=== PATIENT | female | born 1945 | race American Indian/Alaskan Native ===

== ENCOUNTER 2020-02-11 17:48 | Emergency (ER) | payer OTHER, MEDICARE ==
[~2020-02-11] VITALS: Ht 157.5 cm; Wt 75.7 kg
[~2020-02-11 17:48] MED LIST: CALCIUM600 MG PO; LISINOPRIL20 MG PO; MULTIVITAMINS1 EAC7 PO; PROBIOTIC1 EAC1 PO; VITAMIN D5000 UNIT PO
[2020-02-11] MEDS ORDERED: DILAUDID2 MG PO (20:56)
== END 2020-02-11 21:37 | disposition home or self-care (01) ==
LOC: ED 17:48
DX: S52.612A Displaced fracture of left ulna styloid process, initial encounter for closed fracture (principal); S52.502A Unspecified fracture of the lower end of left radius, initial encounter for closed fracture; I10 Essential (primary) hypertension; Z88.8 Allergy status to other drugs, medicaments and biological substances; Z91.010 Allergy to peanuts; Z88.5 Allergy status to narcotic agent; Z91.018 Allergy to other foods; Z79.899 Other long term (current) drug therapy; W01.198A Fall on same level from slipping, tripping and stumbling with subsequent striking against other object, initial encounter
CPT/HCPCS: 29125; 73080; 73110; 99283-25

== ENCOUNTER 2020-02-24 09:56 | Day surgery (SDC) | payer OTHER, MEDICARE ==
[~2020-02-24] VITALS: Ht 157.5 cm; Wt 79.3 kg
[~2020-02-24 09:56] MED LIST changes: +DILAUDID2 MG PO
--- NOTE | 2020-02-24 10:15 | NUR ---
both nares swabbed for covid-19 rapid testing without complication sample taken to [facility]
[2020-02-24] MEDS ORDERED: TYLENOL325 MG PO (10:45)
--- NOTE | 2020-02-24 11:41 | NUR ---
PT USES CALL LIGHT TO NOTIFY DS STAFF OF URGE TO VOID. PT UP TO BATHROOM WITH RN ASSIST, STEADY GAIT. PT ABLE TO VOID QS WITH NO PROBLEMS. RN ASSIST BACK TO DS RM 1, WARM BLANKETS PROVIDED. CALL LIGHT WITHIN REACH, FAMILY AT BEDSIDE.
[2020-02-24] MEDS ORDERED: CELECOXIB200 MG PO (16:46)
[2020-02-24] MEDS ORDERED: TRAMADOL HCL50 MG PO (16:48)
--- NOTE | 2020-02-24 17:30 | NUR ---
02/24/20 1730 Stephanie Patino 1622 PT ARRIVED IN PACU SLEEPY WITH NO C/O'S. L ARM ELEVATED ON PILLOWS WITH ICE PRESENT. 164 C/O HEADACHE. SIPPING ON COFFEE. 1700 GETTING DRESSED WITH ASSISTANCE. DC INSTRUCTIONS GIVEN. ALL QUESTIONS ANSWERED. PT PLACED IN SLING UNTIL BLOCK HAS WORN OFF. 172 LEFT VIA W/C. INSTRUCTIONS GIVEN TO SON. PT'S OWN BLACK BRACE GIVEN TO SON AT CAR.
--- NOTE | 2020-02-25 16:27 | EKG ---
[facility] [address] [facility] [place], [place] [address] Signed Normal sinus rhythm Normal ECG No previous ECGs available Confirmed by SAMANTHA RAND DO ([id number]) on 02/25/2020 4:27:41 PM Electronically Signed By: SAMANTHA RAND DO 02/25/20 1627 PATIENT NAME: LORI PEÑALOZA Electrocardiogram DATE OF : 47 PHYSICIAN: SAMANTHA RAND DO REPORT #: [id number] REPORT IS CONFIDENTIAL AND NOT TO BE RELEASED WITHOUT AUTHORIZATION
--- NOTE | 2020-02-26 08:22 | OR ---
[facility] [address] [place], [place] [address] Signed DATE OF OPERATION: 02/24/2020 SURGEON: Nancy Hebert MD PREOPERATIVE DIAGNOSIS: Left distal radius and ulnar fracture. POSTOPERATIVE DIAGNOSIS: Left distal radius and ulnar fracture. PROCEDURE PERFORMED: Open reduction and internal fixation of left distal ulna. SPORTS PSYCHOLOGIST: None. ANESTHESIA: General. TOURNIQUET TIME: 20 minutes. IMPLANTS: 2.5 x 20 mm headless screw. BRIEF HISTORY: Lori is a 74-year-old female with pain and swelling in her wrist after a fall. She had a stable slightly angulated distal radius fracture with a markedly displaced distal ulnar styloid fracture. This was a full base fracture and was displaced about 4 mm. The risks and benefits of operative treatment were discussed with her and the patient elected to proceed. DESCRIPTION OF PROCEDURE: Once consent was obtained, she was taken to the operating room. After adequate anesthesia, she was placed on the operating room table with a radiolucent hand table. The arm was placed in well-padded proximal arm tourniquet, prepped and draped in a standard sterile fashion. The arm was exsanguinated using Esmarch bandage. Tourniquet inflated to 200 mmHg. Standard dorsal lateral approach was made to the distal ulna, carried through the skin and subcutaneous tissue. Care was taken to protect and sneak underneath it. The styloid was visibly displaced and was distracted and the Electronically Signed By: NANCY HEBERT MD 02/26/20 0822 PATIENT NAME: LORI PEÑALOZA OPERATIVE REPORT DATE OF : 47 REPORT #: [id number] PHYSICIAN: NANCY HEBERT MD PCP: RONEN COLLINS MD REPORT IS CONFIDENTIAL AND NOT TO BE RELEASED WITHOUT AUTHORIZATION [facility] [address] [place] [id number] Signed fracture bed was cleared of soft tissue. We were then able to manipulate it by some rotation and clamping it distal to the shaft. Under image intensifier guidance, it looked good. We then placed the guidewire for the 2.5 headless screw and overdrilled it. This was measured to a 20. The 20 was then placed over the guide pin and advanced until it was well-seated with excellent compression of the fracture. The guide pin was then removed. Final radiographs showed good reduction and good placement of the screw. The wound was copiously irrigated with antibiotic solution, closed with 3-0 Monocryl for the deep layer and 3-0 Monocryl for the skin. Steri-Strips were applied. The wound was dressed with sterile gauze, sterile cast padding and radial gutter splint. She tolerated the procedure well. All sponge, needle, and instrument counts were correct. Nancy Hebert MD BA/EDISONL /[id number] Copies: ~ Electronically Signed By: NANCY HEBERT MD 02/26/20 0822 PATIENT NAME: LORI PEÑALOZA OPERATIVE REPORT DATE OF : 47 REPORT #: [id number] PHYSICIAN: NANCY HEBERT MD PCP: RONEN COLLINS MD REPORT IS CONFIDENTIAL AND NOT TO BE RELEASED WITHOUT AUTHORIZATION
== END 2020-02-24 17:22 | disposition home or self-care (01) ==
LOC: DS 09:56
PROVIDERS: ATTEND Specialist
DX: S52.612A Displaced fracture of left ulna styloid process, initial encounter for closed fracture (principal); S52.502A Unspecified fracture of the lower end of left radius, initial encounter for closed fracture; G89.18 Other acute postprocedural pain; W01.0XXA Fall on same level from slipping, tripping and stumbling without subsequent striking against object, initial encounter
CPT/HCPCS: 01830; 64417; 73100; 76942; 80053; 85025; C9803; J0690; J1100; J1885; J2250; J2405; J2704; J2795; J7121; U0003

== ENCOUNTER 2020-10-24 14:12 | Emergency (ER) | payer MEDICARE, OTHER ==
[~2020-10-24] VITALS: Ht 157.5 cm; Wt 78.9 kg
[~2020-10-24 14:12] MED LIST changes: +CALCIUM 600 +1 EAC8 PO; -CALCIUM600 MG PO; +CELECOXIB200 MG PO; -LISINOPRIL20 MG PO; +TRAMADOL HCL50 MG PO; +TYLENOL325 MG PO; +VITAMIN D21250 MCG PO; -VITAMIN D5000 UNIT PO; +ZESTRIL5 MG PO
--- OUTSIDE RECORDS SUMMARY | 2020-10-24 14:50 | XMS ---
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 Richard has no Care Guidelines for this patient. Roseann VISIT COUNT (12 MO.) 2 [facility] TOTAL 2 NOTE: Visits indicate total known visits. 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
== END 2020-10-24 17:04 | disposition home or self-care (01) ==
LOC: ED 14:12
DX: U07.1 COVID-19 (principal); J12.82 Pneumonia due to coronavirus disease 2019; I10 Essential (primary) hypertension; Z88.5 Allergy status to narcotic agent; Z91.041 Radiographic dye allergy status; Z91.018 Allergy to other foods; Z91.010 Allergy to peanuts; Z79.899 Other long term (current) drug therapy
CPT/HCPCS: 71045; 80053; 85025; 96374; 99284-25; J1885; J7040

== ENCOUNTER 2020-10-26 14:15 | Inpatient (IN) | payer MEDICARE, OTHER ==
[~2020-10-26] VITALS: Ht 157.5 cm; Wt 73.2 kg
--- OUTSIDE RECORDS SUMMARY | 2020-10-26 14:22 | XMS ---
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 10/26/2020-[facility] PHONE: [phone] Richard has no Care Guidelines for this patient. Care History Medical/Surgical 10/26/2020 [facility] - PATIENT IS [facility] ELIGIBLE, \T\middot;\T\nbsp; PLEASE REFER PATIENT TO [facility] FOR NON EMERGENT MEDICAL NEEDS. \T\middot;\T\nbsp; [facility] CAN SEE PATIENTS SAME DAY FOR APTS IF PATIENT CALLS FIRST THING IN THE MORNING. E.D. VISIT COUNT (12 MO.) 3 [facility] TOTAL 3 NOTE: Visits indicate total known visits. 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
--- NOTE | 2020-10-26 21:32 | NUR ---
PATIENT ARRIVED TO THE FLOOR VIA STRETCHER. PATIENT ABLE TO AMBULATE TO THE RESTRROM A 1PA. PATIENT WAS ABLE TO VOID. PATIENT IS NOW IN BED RESTING. PATIENT IS ON 2L VIA NC AND IT IS NOT CHRONIC. PATIENT ON TELE #10, SR NOTED. PATIENT DENIES ANY SOB. PATIENT HAS DRY COUGH. PATIENT DENIES ANY SPUTUM. PATIENTS ADMISSION COMPLETED. PATIENTS MEDICATIONS GIVEN PER ORDER. ALL QUESTIONS ANSWERED. PATIENT PROVIDED IWTH ICE WATER, SANDWICH BOX AND DIANA FERNANDEZ. PATIENT DENIES ANY FURTHER NEEDS. CALL LIGHT IN REACH.
--- NOTE | 2020-10-26 22:30 | NUR ---
PATIENT REQUESTED SNACK, A LUNCH BOX WAS PROVIDED. PATIENT ROOM TIDIED, IS AND OS DOCUMENTED. CALL LIGHT LEFT WITHIN REACH, NO OTHER IMMEDIATE NEEDS AT THIS TIME.
--- NOTE | 2020-10-26 23:03 | NUR ---
PATIENT IS RESTING IN BED WITH EYES CLOSED, RR 16. PATIENT ON TELE #10 HR 70 AND OXYGEN SATURATION 96%. CALL LIGHT IN REACH.
--- NOTE | 2020-10-27 03:03 | NUR ---
PATIENT ASSISTED TO THE RESTROOM A 1PA. PATIENT WAS ABLE TO VOID. PATIENT IS RESTING IN RECLINER. PATIENT REPORTS 5/10 PAIN IN HER BACK. PATIENT STATED "THE BED HURTS MY BACK". PATIENT GIVEN PRN TYLENOL PER ORDER. PATIENTS VITALS TAKEN AND RECORDED. INTAKE AND OUTPUT RECORDED. NO FURTHER NEEDS NOTED. PATIENT REMAINS ON 2L VIA NC. NO FURTHER NEEDS NOTED. CALL LIGHT IN REACH.
--- NOTE | 2020-10-27 03:38 | NUR ---
PATIENT ASSISTED FROM THE RECLINER TO BED. PATIENT REMAINS ON 2L VIA NC. PATIENT DENIES ANY SOB. PATIENT DENIES ANY NEEDS. CALL LIGHT IN REACH.
--- NOTE | 2020-10-27 05:35 | NUR ---
VITALS TAKEN AND RECORDED. INTAKE AND OUPUT RECORDED. PATIENT TITRATED TO 1L VIA NC. PATIENT DENIES ANY SOB. PATIENTS BLOOD DRAWN AND SENT TO THE LAB. PATIENT IS RESTING IN BED. PATIENT DENIES ANY NEEDS. CALL LIGHT IN REACH.
--- NOTE | 2020-10-27 07:30 | NUR ---
Report received from Ryan ENCARNACION. Pt resting in bed, has no needs at this time, will continue plan of care.
--- NOTE | 2020-10-27 07:58 | NUR ---
H&P, ER note faxed to Milo Lindsey, [facility] , per request to update clinic files.
--- NOTE | 2020-10-27 09:15 | NUR ---
Scheduled medications administered, assessment complete. Pt up to chair and eating breakfast, states having slight amount pain "in between shoulder blades", lung assessment WNL, pt states no SOB, on 1L NC with SPO2 94%. VSS, A+O, I/O's charted. No further needs at this time, call light in reach.
--- NOTE | 2020-10-27 13:00 | NUR ---
Tylenol 650mg po admin for reports of 6/10 head pain. Vital signs are stable at this time. Patient assisted to restroom then back to chair. Lunch set up for patient. Fresh water provided. Patient denies further needs. Personal supplies and call light within reach.
[2020-10-27] MEDS ORDERED: MAGOX 400400 MG PO (14:01)
--- NOTE | 2020-10-27 14:02 | NUR ---
MED REC COMPLETE
--- NOTE | 2020-10-27 16:37 | NUR ---
Rounded on patient who is resting in bed, respirations even and unlabored, reporting no needs at this time. Given medication list from pharmacy to look over, pt verbalizes understanding and has no pain, no SOB. Call light in reach.
--- NOTE | 2020-10-27 17:15 | NUR ---
Dinner taken to patient, vital signs complete. Pt states does not need to void at this time, discussed pt condition and plan of care. She states feeling "much better" and reports feeling mostly "fatigued". This RN asks about pt's living situation and if she has support at home, she states she cares for her nephew, and her daughter is coming to "disinfect her house" on monday but otherwise she does not have assistance. This RN reassures patient that she will not be discharged before medically cleared. Pt states has no questions or needs at this time. Call light in reach.
--- NOTE | 2020-10-27 19:59 | NUR ---
RECEIVED REPORT FROM DAY SHIFT RN. PATIENT IS UP TO RECELINER. PATIENT DENIES ANY NEEDS. CALL LIGHT IN REACH.
--- NOTE | 2020-10-27 21:20 | NUR ---
ASSESMENT COMPLETED. VITALS TAKEN AND RECORDED. PATIENTS MEDICATIONS GIVEN PER ORDER. PATIENT GIVEN PRN PAIN MEDICATION PER ORDER. PATIENT GIVEN PRN MELATONIN PER REQUEST. PATIENT EDUCATED ON POSITION CHANGES AND PAPER EDUCATION PROVIDED. PATIENT ASSISTED TO THE PRONE POSITION. PATIENT DENIES ANY NEEDS. CALL LIGHT IN REACH.
--- NOTE | 2020-10-27 21:40 | NUR ---
PATIENT ABLE TO PRONE FOR 20 MON. PATIENT IS NOW RESTING IN BED ON RIGHT SIDE. PATIENT DENIES ANY SOB. PATIENT DENIES ANY FURTHER NEEDS. CALL LIGHT IN REACH.
--- NOTE | 2020-10-27 22:13 | EKG ---
[facility] [address] [facility] [place], [place] [address] Signed Normal sinus rhythm Normal ECG When compared with ECG of 24-FEB-2020 11:29, No significant change was found Confirmed by AVELINO RICO MD ([id number]) on 10/27/2020 10:08:21 PM Electronically Signed By: AVELINO RICO MD 10/27/202212 PATIENT NAME: LORI PEÑALOZA Electrocardiogram DATE OF : 47 PHYSICIAN: AVELINO RICO MD REPORT #: [id number] REPORT IS CONFIDENTIAL AND NOT TO BE RELEASED WITHOUT AUTHORIZATION
--- NOTE | 2020-10-27 23:45 | NUR ---
PATIENT CALLED AND REQUESTED MORE TISSUES. PATIENT PROVIDED WITH MORE TISSUES. PATIENT IS SITTING UP ON EDGE OF THE BED. PATIENT DENIES ANY SOB. PATIENT REMAINS ON 1L VIA NC. NO FURTHER NEEDS NOTED. CALL LIGHT IN REACH.
--- NOTE | 2020-10-28 00:35 | NUR ---
PATIENT UP TO THE RESTROOM. PATIENT ABLE TO VOID. PATIENT IS BACK IN BED RESTING. PATIENT DENIES ANY NEEDS. CALL LIGHT IN REACH.
--- NOTE | 2020-10-28 02:25 | NUR ---
PATIENT IS RESTING IN BED WITH EYES CLOSED, RR 14. PATIENT IS RESTING ON HER LEFT SIDE. PATIENT IS ON TELE #10, SR, HR 63, AND 94% ON 1L. CALL LIGHT IN REACH.
--- NOTE | 2020-10-28 05:35 | NUR ---
ASSESMENT COMPLETED. PATIENT IS SITTING UP HIGH IN BED. PATIENT REPORTS GENERALIZED ACHES. PRN TYLENOL GIVEN PER ORDER. PATIENT HAS INCREASED SPUTUM OUPUT AND INCREASED COUGHING. PATIENT TITRATED UP TO 2L VIA NC. PATIENTS INTAKE AND OUPUT RECORDED. VITALS TAKEN AND RECORDED. PATIENTS BLOOD DRAWN AND SENT TO LAB. PATIENT REMAINS ON TELE #10. PATIENT REPORTS SOB ONLY WHEN COUGHING. PATIENT PROVIDED WITH HOT TEA AND FRESH ICE WATER. PATIENT DENIES ANY FURTHER NEEDS. CALL LIGHT IN REACH.
--- NOTE | 2020-10-28 07:00 | NUR ---
Report received from Ryan ENCARNACION, pt resting in bed with 2L NC at this time, has no needs. Will continue plan of care.
--- NOTE | 2020-10-28 08:30 | NUR ---
In patient's room for assessment, medication administration. Pt sitting up in chair eating breakfast. She reports having a "rough night" with little sleep, coughing throughout night. Discussed cough suppressant medications, pt states would like to take later and feels her cough is productive to her healing at this time. Mucinex administered as scheduled. Pt has no needs at this time, call light in reach.
--- NOTE | 2020-10-28 09:00 | NUR ---
Spoke with Tg by phone as she is covid +. She lives in [place] [address] in a trailer. She has two steps in to home. She states she lives with her son, but he is unable to care for her. She plans on her daughter traveling from [place] to stay with her as she can shoe worker. Pt states she is unable to care for herself at this time due to fatigue and weakness. She does not feel she is able to cook and provide her own care. She does not use any DME, if she needs 02 on dc she would like to use [place]. She denies other needs and plans on dc to home with daughter to assist. Daughter will arrive Fri or Sat.
--- NOTE | 2020-10-28 10:23 | NUR ---
PT AWAKE IN ROOM. PT INDEPENDENT IN ROOM, AMBULATES TO BATHROOM, NOW IN BED PLANNING TO REST. CALL LIGHT WITHIN REACH. NO FURTHER NEEDS AT THIS TIME.
--- NOTE | 2020-10-28 10:31 | NUR ---
PT REFUSED SHOWER THIS MORNING. THIS BOOKS BINDER WILL OFFER ANOTHER THIS AFTERNOONN. NO FURTHER NEEDS AT THIS TIME.
--- NOTE | 2020-10-28 13:30 | NUR ---
Pt requests soup and robitussin, in room to administer meds. Pt up to chair eating lunch, states feeling generally "okay but panics" after coughing if oxygen is not on. She is currently receiving 1L via NC and SPO2 is 95%. She states encouraged that she is having a productive cough. Pt reports no further needs, call light within reach.
--- NOTE | 2020-10-28 15:03 | NUR ---
Walked with patient in room on room air. She maintains SPO2 in 90's while walking, once back to chair has coughing episode and drops to 85%. Recovers to 89% on room air, placed back on 1L and is now at 94%. She states it "feels good to be up and walk", physical therapy discussed with patient, MD, and ordered for pt. She states would like to shower today. No other needs at this time, call light in reach.
--- NOTE | 2020-10-28 16:04 | NUR ---
THIS ASSOCIATE PUBLISHER HELPED SET PT UP FOR A SHOWER. ONCE PT CALLED, THIS ASSOCIATE PUBLISHER HELPED PT GET DRESSED. PT HAS A NEW GOWN, NEW SOCKS, NEW UNDERWEAR, AND NEW LEADS FOR TELE. PT IS NOW IN RECLINER. CALL LIGHT IS WITHIN REACH. NO FURTHER NEEDS AT THIS TIME.
--- NOTE | 2020-10-28 19:48 | NUR ---
up in chair, O2 in place, visitint with family via phone, denies c/o pain or sob tele#[address], bradychardic rhythm at 53-58bpm, sats 93% as per tele, denies c/o sob, CP or pain. ambulates in room, independent
--- NOTE | 2020-10-28 20:37 | NUR ---
IN CHAIR, O2 1LNC, CPOX TELE#[address], BRADYCHARDIAC AT 55, RESP SHALLOW RESP 20. LUNGS WITH EXP CRACKLES BILAT. INCREASED WITH EXERTION FROM CHAIR TO BED. TOLERATING LIQUID WELL, NO EMESIS. TOOK ROBITUSSIN SYRUP, CALL LIGHT AT BEDSIDE, HOB ELEVATED TO COMFORT
--- NOTE | 2020-10-28 22:04 | NUR ---
MELATONIN AND TYLENOL GIVEN PER C/O INSOMNIA AND GENERALIZED PAIN.
--- NOTE | 2020-10-28 22:22 | NUR ---
up to bsc, sats 93% 1LNC, sob on exertion, sasts 87-90% on 1L, tele#[address], back to bed, cough still present
--- NOTE | 2020-10-29 00:35 | NUR ---
PT CALLED [facility] REQUESTING PEPPERMINT TEA, THIS WAS PROVIDED. WHILE IN PT ROOM, PT BEGAN EXPLAINING THAT EARLIER SHE HAD YOGURT AND FORGOT THAT SHE IS VERY LACTOSE INTOLERANT AND ASKED FOR SOMETHING TO HELP WITH GAS/UPSET STOMACH. PT NURSE WAS NOTIFIED. CALL LIGHT LEFT WITHIN REACH, NO OTHER IMMEDIATE NEEDS AT THIS TIME.
--- NOTE | 2020-10-29 02:08 | NUR ---
up to br, dests to 80% and back to 90-95% on return to bed. sob with exertion . O2 1LNC, no further c/o abd distress, tolearting fluids well
--- NOTE | 2020-10-29 03:43 | NUR ---
C/O H/A, MEDICATED WITH TYLENOL AND TESSALON PERLES PER COUGH, TELE#[address], SATS 93%, O2 [place] NC
--- NOTE | 2020-10-29 04:53 | NUR ---
Pt continues on airborne isolation precautions, On 1LNC, tele#[address], currently 94% sats. pt desats when up to br or walking around in room. sob with exertion present. independent in room. O2 1LNC, lungs with insp fine crackles and dim exp. dry cough present, rubitossin and tessalon perles given partially effective.medicated with tylenol per c.o h/a, effective. has been awake most of this shift, received Melatonin per insomnia, partially effective. Tolerating diet and fluids., no c/o emesis. turns and reposions self in bed, proning written pamphlet at bedside, aware of proning positions and stated she has been trying proning positions. uses call light, alert and oriented
--- NOTE | 2020-10-29 08:52 | NUR ---
PT MIKIE DUBON IN [facility], REPORTS GOOD APPETITE FOR BREAKFAST.
--- NOTE | 2020-10-29 10:30 | NUR ---
Attempted to speak with Tg. Resp are labored, she states she was caught in her bed sheets. Let her know I will notify her nurse. Asked if her daughter is arriving this weekend and she states she thinks so. Notified Karel Russell.
--- NOTE | 2020-10-29 10:33 | NUR ---
PT ATTEMPTED TO GET UP FROM RECLINER SHE REPORTS SHE WAS VERY TANGLED, HER GOWN, OXYGEN HOSE AND CALL LIGHT CORD. PT OXYGEN SATURATION DROPPED TO 79% THEN BACK TO 81%, THIS RN INTO ROOM INCREASED OXYGEN TO 4L N.C., THEN ASSISTED PT IN TRANSFER, WILL LEAVE ON 4L OXYGEN FOR HOUR THEN REASSESS.
--- NOTE | 2020-10-29 12:38 | NUR ---
PT IN FULL PRONE POSITION, OXYGEN SATURATION 93% ON 2L. INCREASED OXYGEN TO 4L TO ALLOW PT TO SIT UP FOR LUNCH. PT GIVEN PRN TYLENOL FOR GENERALIZED ACHES AND STEWART. REMDESIVIR STARTED FIRST DOSE.
--- NOTE | 2020-10-29 15:40 | NUR ---
THERAPY IN [facility] TO WORK WITH HER.
--- NOTE | 2020-10-29 16:26 | NUR ---
PT HAS TRANSFERED FROM BED TO RECLINER AND FROM BED TO COMMODE, AMBULATED INTO BATHROOMONCE WAS SHORT OF BREATH AND DESATURATED REQUIRED OXYGEN TO BE TURNED UP TO 6L TO RECOVER. SHE HAS BEEN REQUIRE 4-6L DEPENDING ON EXTENT OF ACTIVITY. SHE HAS BEEN ABLE TO FULLY PRONE WITH GREAT IMPROVEMENT OF OXYGEN DEMAND, WHILE PRONING SHE WAS ON 2L AT 97% OXYGEN SATURATION. TYLENOL PRN ONCE FOR GENERAL ACHES. SHE HAS BEEN ABLE TO CONSUME SMALL AMOUNT OF MEALS AVERAGE 25%. VOIDING QUANTITY SUFFICIENT. LUNGS ARE COARSE AND CRACKLES THORUGHOUT BILATERAL.
--- NOTE | 2020-10-29 18:53 | NUR ---
PT SITTING UP IN RECLINER NO REQUESTS OR CONCERNS. 94% OXYGEN SATURATION ON 3L.
--- NOTE | 2020-10-29 22:07 | NUR ---
ASSISTED PT LAYING PRONE. SHE REQUESTED A WARM PACK FOR HER NECK. WRAPPED WARM PACK IN TOWEL AND PLACED ON UPPERBACK/NECK. REMINDED PT TAKE IT OFF OR CALL IF IT FEELS TO WARM. PT DENIES NEEDS AT THIS TIME. CALL LIGHT IS CLOSE.
--- NOTE | 2020-10-29 22:36 | NUR ---
PT UP FROM CHAIR TO BR, VOIDED, BACK TO BED, TELE#[address] PT ON 4LNC, DESATTED TO 85% DURING TRANSITION, SOB WITH EXERTION, INCREAESD MOIST PRODUCTIVE COUGH WITH YELLOW THICK SPUTUM, LUNGS DIM EXP AND FINE CRACKLES INSP. SATS UP TO 95% ONCE SHE SAT DOWN IN BED AND CATCH HER BREATH. RESP INCREASED TO 24-30, AND DOWN TO 20 AT THIS TIME. "Nat READY TO PRONE ON MY STOMACH SOON I CATCH MY BREATH AGAIN AFTER COUGHING AND AFTER IM DONE COUGHING, . C/O'HURTING ALL OVER H/A-NECK-RIBS FROM COUGHING AND STAYING IN BED". MEDICATED WITH TESALON PERLES PER COUGH, TYLENOL PER H/A AND PAIN, DECLINED ICE TO BACK OF HEAD; AND MELATONIN PER INSOMINA ' I DID NOT SLEPT AT ALL LAST NIGHT". HAS VOIDED QS. VERY ANXIOUS, REASSURED MULTIPLE TIMES, CONT TO PRAISE FOR PRONING SELF OFTEN.
--- NOTE | 2020-10-30 01:10 | NUR ---
warm pad to back on requests,cpox at 94% 4L nc when up to edge of bed, repositioning self, continuos to have moist productive cough
--- NOTE | 2020-10-30 03:07 | NUR ---
PT'S CPOX SHOWED 77%, CHECKED ON PT. SHE WAS ON BSC. PT'S O2 CONT TO DECREASE AND GOT LOW AT 69%. SHE IS BACK IN BED, ON 5LNC STATES HER SOB IS IMPROVING NOW. SHE IS AT 90% ON CPOX THEN INCREASED TO 93%. EMPTIED URINE FROM BSC AND PT DENIES FURTHER NEEDS. CALL LIGHT IS CLOSE.
--- NOTE | 2020-10-30 03:09 | NUR ---
Pt up to bsc, desatted to 60%. O2 was increased from 3-4 and not long ago to 5L by this RN as she seems to have a harder time catching her breath and calming down. cpox tele in place#10. sats on 5L 92%. back to bed, warm pad to back.
--- NOTE | 2020-10-30 04:45 | NUR ---
0445- PT UP TO BSC, GOT AN ANXIETY ATTACK, TACHYPNEIC, O2 5LNC, SATS DROPPED TO 79% PER TELE CPOX, O2 INCREAED TO 6LNC, MUCH REASSURANCE. LUNGS W/O CHANGES FROM EARLIER. TOOK LIKE 20 MINUTES TO CALM DOWN AFTER MUCH REASSURANCE AND PRAISING FOR EFFORTS WHEN PRONING POSITION T/O THIS SHIFT. - 0527 CALMER AT THIS TIME. ON SITTING HIGH POSITIONING IN BED. SATS 91%, RESTING IN BED, TOLERATING LIQUIDS WELL. VOIDING QS. CALL LIGHT AND FRESH LIQUIDS AT BEDSIDE
--- NOTE | 2020-10-30 06:17 | NUR ---
Faxed face sheet, H&P and notes to [facility] to let them know pt may dc this weekend and will potentially need 02.
--- NOTE | 2020-10-30 06:40 | NUR ---
Updated notes faxed to [facility] for Medical records.
--- NOTE | 2020-10-30 07:01 | NUR ---
VERY ANXIOUS, HYPERVENTILATING, SATS DROPPED TO 79-82%, WHEN UP TO OUT OF BED, [id number], TYLENOL 650MG PO GIVEN PER H/A AND GENERALIZED ACHES. WANTS TO GO IN PRONING POSITION. CPOX TELE#[address], SATGS 88% AND CLIMBING.
--- NOTE | 2020-10-30 07:31 | NUR ---
CARE REPORT FROM DAVIAN RN, PT SLEPT MAYBE AN HOUR, HAD SIGNIFICANT ANXIETY WITH SOB WITH REPOSITIONING AND UP TO RECLINER OR BEDSIDE COMMODE. PT CURRENTLY ON 6L. ON TELE #10 FOR OXIMETRY MONITORING
--- NOTE | 2020-10-30 10:01 | NUR ---
PT UP IN RECLINER, PT NOW REQUIRING 7L OXYGEN TO REMIAIN 88-92% OXYGEN SATURATION. SHE IS RELAXED IN RECLINER, LUNG ASSESSMENT THROUGHOUT MUCH TIGHTER THAN YESTURDAY WITH CRACKLES. 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
--- NOTE | 2020-10-30 11:28 | NUR ---
PT UP TO BEDSIDE COMMODE, DESATURATED TO 79%, INCREASED OXYGEN TO 12L TO RECOVER, PT TO BED TO PRONE NOW ON 8L OXYGEN MONITORING CLOSE TO TITRATE.
--- NOTE | 2020-10-30 11:33 | NUR ---
PT SIDE LYING AT THIS TIME. ON 9L HIGH FLOW N.C. SHE IS CURRENTLY AT 91% OXYGEN SATURATION.
--- NOTE | 2020-10-30 14:25 | NUR ---
PT RESTING IN BED ON RIGHT SIDE, OXYGEN SATURATION 98% ON 7L, PT ALERT AND ORIENTED. SHE VERBALIZED SHE HAS NO NEEDS AT THIS TIME.
--- NOTE | 2020-10-30 15:44 | NUR ---
PT SITTING UP IN RECLINER ALERT AND ORIENTED, OXYGEN SATURATION 97% ON 7L OXYGEN, WILL ATTEMPT TO TITRATE ON NEXT ROUNDING.
--- NOTE | 2020-10-30 16:25 | NUR ---
PT RESTING IN RECLINER TALKING ON ROOM PHONE, ON 6L OXYGEN SATURATION IS 92%. NO DISTRESS NOTED.
--- NOTE | 2020-10-30 16:29 | NUR ---
PT HAS BEEN ANXIOUS OVER SHIFT INTERMITTENLY. SHE IS EASILY REASSURED, INCREASE IN OXYGEN FLOW WITH ACTIVITY HELPS MAINTAIN ACCEPTABLE OXYGEN SATURATIONS AND LESS DYSPNEA. CURRENTLY ON 6L OXYGEN AT REST TO MAINTAIN 90-92% OXYGEN SATURATIONS. SHE STILL HAS POOR APPETITE, SHE WILL TAKE A FEW BITES OF MEALS, TOLERATES JELLO WELL. NO NAUSEA, HAS BEEN GIVEN TYLENOL FOR GENERAL ACHES WHEN AVAILABLE.
--- NOTE | 2020-10-30 19:20 | NUR ---
REPORT GIVEN TO THIS RN BY ALYSHA FREEMAN. PATIENT CURRENTLY PRONE IN BED RESTING QUIETLY. RESPIRATIONS ARE REGULAR AND EVEN AND CALL LIGHT IS IN REACH. NO CURRENT CARE NEEDS AT THIS TIME.
--- NOTE | 2020-10-30 19:35 | NUR ---
IN TO ASSIST PT WITH SITTING UPRIGHT FROM A PRONE POSITION, PT STILL WORKING ON FOOD AT THE BEDSIDE TABLE, PT ASKING IF THE MD ORDERED HER A MEDICATION, WILL THE RN, NO FURTHER NEEDS AT THIS TIME
--- NOTE | 2020-10-30 19:45 | NUR ---
PATIENT REQUESTING BENADRYL FOR ANXIETY AND WAS INFORMED AND THIS HAS BEEN ORDERED.
--- NOTE | 2020-10-30 21:20 | NUR ---
PATIENT GIVEN PO TYLENOL FOR STEWART OF 3/10 PAIN, BENADRYL FOR ANXIETY, TESSALON KRISTINA FOR COUGH, AND MELATONIN FOR SLEEP. PATIENT HAS WATER AND PM ASSESSMENT IS COMPLETE. PATIENT HAS NO FURTHER CARE NEEDS AT THIS TIME. CALL LIGHT IN REACH.
--- NOTE | 2020-10-30 22:22 | NUR ---
TIBURCIO, RT HAS TITRATED PATIENT'S O2 DOWN TO 5L/NC AT THIS TIME WITH OUT SAT ON CONTINOUS MONITOR 96% AT THIS TIME.
--- NOTE | 2020-10-30 23:57 | NUR ---
PATIENT SITTING ASLEEP IN SEMI-FOWLERS POSITION IN BED WITH A SAT OF 90% ON 5L/NC. PATIENT'S EYES ARE CLOSED AND RESPIRATIONS ARE REGULAR AND EVEN. CALL LIGHT IS IN REACH.
--- NOTE | 2020-10-31 01:02 | NUR ---
PATIENT CALLED FOR ASSISTANCE TO PRONE. MAINTAINING COVID PRECAUTIONS THIS RN WENT IN PATIENT'S ROOM AND HELPED HER GET REPOSITIONED INTO A PRONE POSITION IN HER HOSPITAL BED. PATIENT REMAINS AT 95% O2 SAT ON 5L/NC NOW PRONE IN BED. PATIENT'S CALL LIGHT IS IN REACH AND PATIENT HAD NO OTHER CARE NEEDS AT THIS TIME.
--- NOTE | 2020-10-31 01:20 | NUR ---
IN PT RM TO ASSIST PT WITH STANDING AT BEDSIDE, PT NOW WANTING TO LAY ON STOMACH, SPENT TIME IN PT RM TO ADJUST PILLOWS, MAKE SURE PT HAD ITEMS IN REACH, AND TO REASSURE PT WITH OXYGEN NEEDS, NO FURTHER NEEDS AT THIS TIME
--- NOTE | 2020-10-31 02:29 | NUR ---
PATIENT 1PSBA UP TO THE BEDSIDE ARMCHAIR. PATIENT RECLINING NOW IN THE CHAIR. TISSUES ON THE BEDSIDE TABLE WITH WATER AND CALL LIGHT IN REACH. PATIENT HAD NO OTHER NEEDS AT THIS TIME AND REMAINS ON 5L/NC WITH O2 SAT=90% AND HR=67 ON TELE.
--- NOTE | 2020-10-31 03:46 | NUR ---
PATIENT CONTINUES TO REST QUIETLY IN THE BEDSIDE ARMCHAIR, RESPIRATIONS ARE REGULAR AND EVEN, O2 SATS=91% ON 5L/NC AND PATIENT'S HEART RATE=67 PER TELE. PATIENT'S EYES ARE CLOSED AND HER CALL LIGHT IS IN REACH. PATIENT HAS NO NOTED CARE NEEDS AT THIS TIME.
--- NOTE | 2020-10-31 05:45 | NUR ---
PATIENT UP TO THE BEDSIDE COMMODE THIS TIME WITH 1PA AND BACK TO BED. THIS RN ASSISTING. PATIENT HAS WALKED INTO THE BATHROOM PREVIOUS TIMES THIS SHIFT, BUT IS TO TIRED THIS TIME. O2 ALWAYS INCREASED TO 10L/NC BEFORE GETTING UP AND THEN TURNED BACK TO 5L/NC AFTER PATIENT HAS ADJUSTED BACK IN BED OR THE BEDSIDE ARMCHAIR. PATIENT IS BACK IN BED AT THIS TIME ON HER LEFT SIDE. PO TYLENOL GIVEN FOR 5/10 BACK PAIN. LAB IS IN THE ROOM AT THIS TIME TO DRAW BLOOD. CALL LIGHT IS IN REACH.
--- NOTE | 2020-10-31 09:45 | NUR ---
THIS RN IN PTS ROOM TO GIVE PT HER MORNING MEDS. PT STATES THAT SHE IS WORRIED ABOUT HER OXYGEN STATUS. THIS RN REASSURED HER THAT IT IS ANTICIPATED WHEN A PT WITH COVID GETS UP AND MOVES THAT THEIR SATS CHANGE, PT DID RECOVER WELL AFTER GETTING UP TO CHAIR WITH MACHINE SILK SCREEN PRINTER. PT OBCESSING ABOUT HER O2 NUMBERS AND KEEPS WATCHING HER TELE BOX, PT APPEARS TO BE GETTING MORE ANXIOUS SHE DOES THIS, THIS RN PROVIDED PT WITH BENADRYL AND DISCUSSED WITH PT THAT OBCESSING ABOUT HER NUMBERS IS NOT GOING TO HELP HER HEALING PROCESS. PT STATES UNDERSTANDING.
--- NOTE | 2020-10-31 11:18 | NUR ---
THIS RN IN PTS ROOM TO ASSIST PT TO GET BACK TO BED. THIS RN HAD PT AMBULATE TO THE RESTROOM, THIS RN TITRATED PT UP TO 8L ON HIGH GIANNA NC PRIOR TO MOVEMENT. PT HAD A COUGH ATTACK ON THE TOILET. PT DESATED TO 74% ON 8L. THIS RN TITRATED PT UP TO 10L AND GOT PT BACK TO BED. PT APPEARS ANXIOUS AND IS TACHYPNIC, THIS RN NOTED THAT PT HAD HER EYES CLOSED, HAD PT OPEN HER EYES AND INSTRUCTED TO PT TO BREATHE SLOWER. PT STARTED TO FOLLOW INSTRUCTIONS BUT THEN STATED "IM NOT GETTING ENOUGH OXYGEN" THIS RN INSTRUCTED PT THAT BREATHING TOO FAST THIS WILL NOT HELP HER. THIS RN HAD PT USE THE INCENTIVE SPIROMETER. PT ABLE ONLY TO 500 AND WASN'T ABLE TO HOLD IT FOR LONG BUT THIS DID ASSIST PT TO BREATHE SLOWER. THIS RN ABLE TO GET PT TO 90% ON 10l PT ABLE TO SIDE PRONE ON HER RIGHT SIDE, SATS COMING UP TO MID 90'S ON 8L. THIS RN WILL CONTINUE TO MONITOR
--- NOTE | 2020-10-31 15:30 | NUR ---
THIS RN IN PTS ROOM TO GET PTS VITALS AND DO ASSESSMENT. PT STATES THAT SHE IS BOARD THAT SHE IS HAVING TO JUST LAY IN A BED. THIS RN HAD PT GET UP TO VOID, WHILE PT WAS UP ON 6L HIGH GIANNA NC PT DESATED TO LOW 70S THIS RN TURNED UP PTS O2 TO 13L TO RECOVER. PT TOOK ABOUT 10-15MINS TO RECOVER. PT ABLE TO REMEMBER FROM EARLIER TEACHING TO TAKE DEEP AND EVEN BREATHS. PT KEPT THIS UP THROUGHOUT RECOVERY PROCESS
--- NOTE | 2020-10-31 16:30 | NUR ---
DAUGHTERS CALLED FOR UPDATE, THEY ARE BOTH AT PT HOUSE NOW. PT GAVE VERBAL OK TO GIVE UPDATES
--- NOTE | 2020-10-31 16:50 | NUR ---
this rn in pts room per pt request. pt reporting that her skins "is itching and burning" pt also reports that she needs to pee. this rn turned pt up to 10l nc to hyperoxygenate pt prior to moving. this rn provided pt with benadryl and tylenol at this time. this rn assisted pt to bedside commode. pt tolerated well. pt was requesting to get in the shower, this rn discussed with pt about her oxygenation status and what happens when she gets up to the commode how low her sats drop. pt allowed this rn to do a full bedbath while she sat at on the commode. pt stated while getting a bed bath that her skin was starting to feel better and that she thought this could be from the sheets on the bed. this rn changed the sheets, pt states that this makes it better. this rn did a shower cap for her hair, brushed it and tied it up in a bun. pt apprecitive of this. this rn able to get pt to recover from movements and get oxygen back down to 8l high [place] nc. pt states that she wants to sit on the edge of bed for a bit and then will lay down to wait for dinner.
--- NOTE | 2020-10-31 19:00 | NUR ---
this rn in pts room to reposition pt her left side to prone. pt toleratated movement well and call light and personal belongings within reach
--- NOTE | 2020-10-31 19:32 | NUR ---
PATIENT RESTING ON HER LEFT SIDE, EYES CLOSED, RESPIRATIONS SHALLOW AND EVEN, O2 SATS 93% ON 8L/NC WITH HR=82. REPORT RECEIVED FROM ALYSHA SADLER. CALL LIGHT IS IN REACH AND PATIENT HAS NO NOTED CARE NEEDS AT THIS TIME.
--- NOTE | 2020-10-31 19:50 | NUR ---
ASSISTED PT UP TO VOID, PT BACK TO BED, LEFT SIDE LAYING, VITALS TAKEN AT THIS TIME, TRASH EMPTIED, NO FURTHER NEEDS AT THIS TIME
--- NOTE | 2020-10-31 21:10 | NUR ---
IN TO ASSIST PT WITH RAISING THE HOB SO THAT PT COULD SIT UP TO WATCH TV, PILLOWS ADJUSTED AND WARM BLANKETS PROVIDED, NO FURTHER NEEDS AT THIS TIME
--- NOTE | 2020-10-31 22:05 | NUR ---
PATIENT GIVEN PO TYLENOL FOR CONTINUED STEWART OF 5/10 WITH SOME LOW BACK PAIN WELL. PATIENT ALSO GIVEN A TESSALON KRISTINA FOR COUGH ALONG WITH MELATONIN AND BENADRYL FOR SLEEP AND ANXIETY. PATIENT HAPPY TO HAVE A CARE PACKAGE FAMIY BROUGHT IN WITH HER ROBE AND SOME HOME COOKED FOOD. PATIENT REPOSITIONED IN BED FOR COMFORT AND PATIENT'S OWN FLEECE BLANKET PUT ON HER BED FOR HER. PATIENT GIVEN A SPOON TO EAT HER FOOD WHEN SHE IS READY. PATIENT HAS NO OTHER CARE NEEDS AT THIS TIME. CALL LIGHT IS IN REACH. 02 SAT=91% ON 6L/NC WITH HR=60 ON TELE.
--- NOTE | 2020-10-31 22:50 | NUR ---
PATIENT RESTING IN HIGH FOWLERS POSITION IN BED WATCHING TV AND EATING SOME FOOD FAMILY DROPPED OF FOR HER. PATIENT REMAINS ON 6L/NC AND O2 SAT IS 93% WITH A HR=62 ON TELE. PATIENT HAS NO CURRENT CARE NEEDS. CALL LIGHT IS IN REACH.
--- NOTE | 2020-11-01 00:35 | NUR ---
PATIENT ASSISTED TO HER RIGHT SIDE AND PILLOW PLACED BEHIND HER BACK. O2 TITRATED FROM 6L TO 4L/NC HIGH FLOW AND SATS ARE AT 90% WITH HR=58 ON TELE. PATIENT HAD NO OTHER CARE NEEDS AT THIS TIME. CALL LIGHT IS IN REACH.
--- NOTE | 2020-11-01 01:55 | NUR ---
1PA UP TO THE BSC AND BACK TO BED REPOSITIONED TO HER LEFT SIDE. PATIENT INCREASED FROM 4L/NC TO 10L/NC WHILE UP AND MOVING, BUT ONCE BACK TO BED UNABLE TO MAINTAIN SATS BEFORE NOW ON HER LEFT SIDE. PATIENT CURRENTLY ON 8L/NC WITH O2 SAT OF 90% AND HR=65 ON TELE. PATIENT'S ICE WATER REFILLED. PATIENT HAD NO OTHER CARE NEEDS AT THIS TIME. CALL LIGHT IS IN REACH.
--- NOTE | 2020-11-01 03:09 | NUR ---
PATIENT RESTING QUIETLY ON HER LEFT SIDE, EYES CLOSED, RESPIRATIONS SHALLOW AND EVEN, O2 SAT IS 92% ON 8L/NC AND HR=82 ON TELE. PATIENT'S CALL LIGHT IS IN REACH.
--- NOTE | 2020-11-01 03:49 | NUR ---
PATIENT GIVEN TYLENOL FOR RECURRENT STWEART/BACK PAIN OF 5/10. PATIENT ASSISTED IN CHANGING POSITIONS IN BED BY ADELINA BECERRIL. PATIENT ON 8L/NC AGAIN AFTER HAVING TO GO UP TO 15L/NC WHILE REPOSTIONING IN BED. O2 SAT=94% WITH HR=64 ON TELE. PATIENT HAS NO OTHER CARE NEEDS AT THIS TIME. CALL LIGHT IS IN REACH.
--- NOTE | 2020-11-01 04:26 | NUR ---
PATIENT CALLED FOR A WARM PACK FOR HER NECK WHICH WAS GIVEN. AM VITALS AND ASSESSMENT DONE. PATIENT REMAINS ON 8L/NC WITH O2 SAT OF 73% AND HR=72. PATIENT HAD NO OTHER CARE NEEDS AT THIS TIME AND STEWART AND BACK PAIN HAVE IMPROVED AFTER TYLENOL. CALL LIGHT IS IN REACH.
--- NOTE | 2020-11-01 06:20 | NUR ---
IN TO ASSIST PT TO STAND AT THE BEDSIDE, PT READY TO USE THE BSC, RN IN TO INFORM THIS MAJOR ACCOUNT REPRESENTATIVE THAT PT SPO2 IS LOW, HAD PT REMAIN ON BSC TO RECOVER WITH INCREASED O2 DELIVERY, THEN MOVED BACK TO BED, POSITIONED SITTING UPRIGHT, PILLOW POSITIONED, NO FURTHER NEEDS AT THIS TIME,
--- NOTE | 2020-11-01 06:30 | NUR ---
PATIENT UP TO THE BEDSIDE COMMODE WITH ASSISTANCE FROM ADELINA BECERRIL. PATIENT'S O2 WAS INCREASED TO 15L/NC TO GET UP TO THE COMMODE, BUT O2 SATS STILL DROPPED TO 70% SO, 15L/OXYMASK PLACED ON PATIENT OVER HIGH FLOW CANNULA TO GET PATIENT'S SATS BACK TO THE 90'S. PATIENT VOIDED AND IS BACK IN BED AT THIS TIME, OXYMASK OFF, BUT PATIENT REMAINS ON 15L/NC IN HIGH FOWLERS POSITON AT THIS TIME WITH O2 SATS OF 91%. PATIENT'S CALL LIGHT IS IN REACH.
--- NOTE | 2020-11-01 07:13 | NUR ---
PATIENT REPORT GIVEN TO ALYSHA SADLER.
--- NOTE | 2020-11-01 07:42 | NUR ---
this rn received report from antonia esparza. pt calling for rn to reposition pt, antonia esparza able to get pt more comfortable
--- NOTE | 2020-11-01 09:05 | NUR ---
THIS RN IN PTS ROOM FROM [id number] TO REPOSITION PT AND GIVE PT HER MORNING MEDS. PT HAD DESATED TO LOW 80'S WHEN CAMILLA SAHU GOT HER UP TO COMMODE AND THEN CONTINUED TO BE LOW FROM 30 DUE TO EATING BREAKFAST AND SITTING UP ON 15L. PT DID RECOVER ONCE SHE WAS PRONED ON HER LEFT SIDE AND THIS RN WAS ABLE TO TURN PT DOWN TO 11L.
--- NOTE | 2020-11-01 10:03 | NUR ---
PT CALLED TO BE REPOSITIONED IN THE BED. THIS RN DISCUSSED WITH PT THAT PHYSICAL THERAPY WONT BE COMING IN DUE TO INCRESED OXYGEN DEMAND. PT ROLLED ON HER BACK AND IMMEDIATELY DESATED TO 82% ON 11L. THIS RN INSTRUCTED PT TO ROLL BACK ON HER SIDE
--- NOTE | 2020-11-01 10:25 | NUR ---
THIS RN IN PTS ROOM TO ASSIST PT TO CHANGE PRONE POSITION. PT REPORTS THAT SHE HAS TO USE RESTROOM, THIS RN PLACED PTS OXYMASK OVER PTS HIGH GIANNA NASAL CANNULA ON 13L. THIS RN HAD PT PRE HYPER OXYGENATE PRIOR TO GETTING UP TO BEDSIDE COMMODE. PT ONLY DESATED TO 84% WHEN STANDING BUT THEN RECOVERED WELL TO 89-91% ON A TOTAL OF 24L OF COMBINED OXYMASK AND HIGH GIANNA. PT REPORTS THAT SHE DID GET SHORT OF BREATH BUT IT FELT BETTER TO HAVE THAT EXTRA OXYGEN. PT BACK TO PRONING POSITION ON THE RIGHT SIDE. THIS RN ALSO PROVIDED PT WITH 650MG OF TYLENOL PER PT REQUEST DT TO HEADACHE AND BACKPAIN. THIS RN REMOVED OXYMASK ONCE PT WAS IN COMFORTABLE POSITION AND SATS WERE STABILIZED
--- NOTE | 2020-11-01 12:35 | NUR ---
THIS RN IN PTS ROOM PER PT REQUEST TO HELP HER UP TO COMMODE AND CHANGE POSITIONS. THIS RN AGAIN HYPEROXYGENATED PT WITH 13L VIA THE OXYMASK IN ADDITION TO HER 11L HIGH GIANNA NC. PT DID NOT DESAT BELOW 90% WHILE GETTING UP TO COMMODE. PT REQUESTING TO SIT UP FOR AWHILE. THIS RN TO KEEP OXY MASK ON PT WITH 5L BLEED IN AND CONTINUE HER NC AT 11L. PT TO SIT UP AT 85 DEGRESS, PILLOWS PLACED FOR COMFORT. THIS RN PROVIDED PT WITH ICE WATER AND CALL LIGHT WITHIN REACH
--- NOTE | 2020-11-01 15:45 | NUR ---
THIS RN IN PTS ROOM TO CHECK ON PT. THIS RN ASSISTED PT TO GET MORE COMFORTABLE ON HER BELLY. PT STATES THAT SHE IS DELMIS BENITEZ OTHERWISE AND NEEDS NOTHING ELSE
--- NOTE | 2020-11-01 18:00 | NUR ---
THIS RN BACK IN PTS ROOM TO CHECK ON PT. THIS RN ASSISTED PT TO COMMODE AND THEN BACK TO THE CHAIR PER PT REQUEST PT WANTING TO SIT IN THE CHAIR DUE TO HER HIPS BEING SORE. PT LEFT IN THE CHAIR ON 11L HIGH GIANNA AND 5L OXYMASK
--- NOTE | 2020-11-01 19:30 | NUR ---
PATIENT RESTING ON HER RIGHT SIDE ON 11L/NC HIGH FLOW WITH O2 SAT=91%. PATIENT HAS NO CURRENT CARE NEEDS. RECEIVED REPORT FROM ALYSHA SADLER. PATIENT'S CALL LIGHT IS IN REACH.
--- NOTE | 2020-11-01 20:27 | NUR ---
PT UP TO BSC, 95% ON 10 L O2 NC. OPEN MASK ADDED AT 5L O2, WHEN PT BACK TO BED STATS DOWN TO 83%. TWO MINUTES PASSED PT STATS BACK UP TO 95%. PT LYING ON LEFT SIDE, OPEN MASK REMOVED, PT REMAINS ON 10L NC , CALL LIGHT WITHIN REACH. NO FURTHER ASSITANCE NEEDED AT THIS TIME. RN NOTIFIED.
--- NOTE | 2020-11-01 21:01 | NUR ---
PATIENT'S TELE/SPO2 BATTERY REPLACED. PATIEN GIVEN MELATONIN FOR SLEEP AND HER PM MED. PATIENT ON HER LEFT SIDE AND HAS NO OTHER NEEDS AT THIS TIME. PM ASSESSMENT COMPLETE. PATIENT REMAINS ON 11L/NC WITH SPO2 SAT 93% WITH TELE HR=60. PATIENT'S CALL LIGHT IS IN REACH.
--- NOTE | 2020-11-01 22:00 | NUR ---
PATIENT REPOSITIONED IN BED BY THIS RN AND AURA CHARGE NURSE. PATIENT THEN DECIDED SHE NEEDED TO USE THE BATHROOM. SO THIS RN GOT HER UP TO THE BEDSIDE COMMODE 1PSBA ASSIST AND BACK TO BED, PATIENT REMAINED ON 11L/NC HIGH FLOW WITH AN ADDITIONAL 15L/OXYMASK WHILE UP AND MOVING. PATIENT NOW POSITIONED OBN HER LEFT SIDE, RESPIRATIONS SHALLOW AND EVEN, O2 SAT 93% ON 11L/NC HIGH FLOW WITH A HR=62 ON TELE. PATIENT'S WATER GLASS IS FULL AND PATIENT HAD NO OTHER CARE NEEDS AT THIS TIME. CALL LIGHT IS IN REACH.
--- NOTE | 2020-11-01 23:46 | NUR ---
PATIENT CALLED REQUESTING TYLENOL FOR STEWART/ABD PAIN 06/22 AND BENADRYL FOR ANXIETY. BOTH OF THESE MEDICATIONS WERE GIVEN. PATIENT SITTING UP IN HIGH FOWLERS POSITION IN BED AND SATS ARE 95% ON 11L/NC HIGH FLOW. PATIENT HAS NO OTHER CARE NEEDS AT THIS TIME. CALL LIGHT IS IN REACH.
--- NOTE | 2020-11-02 01:43 | NUR ---
PATIENT RESTING QUIETLY ON HER LEFT SIDE, RESPIRATIONS ARE SHALLOW AND EVEN, 02 SATS 97% ON 11L/NC HIGH FLOW. PATIENT'S EYES ARE CLOSED AND HER CALL LIGHT IS IN REACH.
--- NOTE | 2020-11-02 04:10 | NUR ---
PATIENT CALLED AND WANTED TO USE THE BEDSIDE COMMODE. 1PA TO THE COMMODE AND BACK TO BED WAS PERFORMED BY THIS RN. PATIENT ON 10L/NC HIGH FLOW AND GIVEN AN EXTRA 15L/OXYMASK WHILE GETTING UP AND GETTING BACK TO BED. PATIENT NOW ON HER RIGHT SIDE, PILLOW TO THE SMALL OF HER BACK, HEAD SLIGHTLY ELEVATED, PATIENT HAS FRESH ICE WATER AND HAS NO OTHER CARE NEEDS AT THIS TIME. PATIENT'S CALL LIGHT IS IN REACH.
--- NOTE | 2020-11-02 05:48 | NUR ---
PATIENT CALLED FOR A WARM BLANKET,TYLENOL FOR 4/10 STEWART/BODY ACHES,AND BENADRYL FOR ANXIETY. THESE MEDS WERE GIVEN AND PATIENT REPOSITIONED TO HER RIGHT SIDE WITH PILLOW TO HER BACK. O2 SATS=91% ON 10L/NC HIGH FLOW WITH HR=68. PATIENT'S CALL LIGHT IS IN REACH.
--- NOTE | 2020-11-02 07:24 | NUR ---
PATIENT RESTING QUIETLY ON HER RIGHT SIDE, EYES CLOSED, RESPIRATIONS SHALLOW AND EVEN, O2 SAT=92% ON 10L/NC HIGH FLOW. PATIENT HAS NO CARE NEEDS AT THIS TIME AND HER CALL LIGHT IS IN REACH. SHIFT REPORT GIVEN TO ALYSHA DAMON.
--- NOTE | 2020-11-02 07:37 | NUR ---
REPORT RECIEVED FROM ALYSHA GONZALEZ
--- NOTE | 2020-11-02 08:49 | NUR ---
THIS TICKET PRINTER HELPED PT TO GO TO THE BATHROOM AND SIT IN RECLINER. PT IS INDEPENDENT WITH A STAND BY ASSISST AT TIMES. PT IS NOW IN THE RECLINER WITH A WARM BLANKET, HOT PACK AND BREAKFAST. CALL LIGHT IS WITHIN REACH. NO FURTHER NEEDS AT THIS TIME.
--- NOTE | 2020-11-02 09:00 | NUR ---
Updated chart notes faxed to [facility] after call from Ann ENCARNACION requesting notes.
--- NOTE | 2020-11-02 09:05 | NUR ---
MORNING ASSESSMENT DONE, PATIENT IS UP TO CHAIR TO EAT BREAKFAST. MORNING MEDICATIONS GIVEN, 10L HIGH FLOW. PATIENT ATE 50% OF BREAKFAST, DENIES OTHER NEEDS AT THIS TIME. ENCOURAGE PATIENT TO USE I/S AND PRONE.
--- NOTE | 2020-11-02 12:09 | NUR ---
PATIENT UP TO COMMODE, O2 UP TO 15L VIA HIGH FLOW NC. 02 RATE LEFT HIGH FOR PATIENT TO SIT UP TO BEDSIDE AND EAT LUNCH.
--- NOTE | 2020-11-02 14:20 | NUR ---
ANSWERED CALL LIGHT, PATIENT 1PA TO BR FOR VOID AND LOOSE STOOL. PATIENT BACK TO BED, NC IN PLACE. CALL LIGHT AND PERSONAL ITEMS IN EASY REACH, NO OTHER NEEDS AT THIS TIME
--- NOTE | 2020-11-02 15:41 | NUR ---
no change in plan for dc
--- NOTE | 2020-11-02 16:53 | NUR ---
Patient up to BSC. Patient independent with toileting other than moving the commode to bedside. patient now back in bed. Fresh ice water given, call light within reach. No further needs at this time.
--- NOTE | 2020-11-02 17:49 | NUR ---
PATIENT ATE 60% FOR DINNER, SITTING UP IN BED AND DENIES NEEDS AT THIS TIME.
--- NOTE | 2020-11-02 19:43 | NUR ---
REPORT RECEIVED FROM DAY SHIFT RN. PT LYING IN BED ALERT AND ORIENTED. DENIES NEEDS AT THIS TIME. CALL LIGHT IN REACH.
--- NOTE | 2020-11-02 20:45 | NUR ---
EVENING ASSESSMENT COMPLETE. SCHEDULED MEDS ADMINISTERED PER EMAR. PRN FOR PAIN ADMINISTERED FOR HEADACHE. 10L/HIGH FLOW NC IN PLACE. SBA TO BSC TO VOID. INCREASED RESPIRATIONS NOTED. PT BACK TO BED, SAT ON EDGE OF BED TO "CATCH HER BREATH". SpO2 NOTED LOW 84%. PT RECOVERED AFTER A FEW MINUTES AND THEN ASSISTED TO LAY DOWN. EXTRA BLANKETS PROVIDED. PT DENIES QUESTIONS OR CONCERNS. CALL LIGHT IN REACH.
--- NOTE | 2020-11-03 00:23 | NUR ---
CALL LIGHT ANSWERED. PT REQUESTING HOT TEA. PT REPORTS THROAT IRRITATION DUE TO DRY COUGH. REPORTS MEDS ADMINISTERED FOR COUGH EARLIER NOT EFFECTIVE. HOT TEA AND HONEY PROVIDED. NO FURTHER NEEDS. CALL LIGHT IN REACH.
--- NOTE | 2020-11-03 01:44 | NUR ---
PT REPORTS CONTINUED DRY COUGH THAT IS PREVENTING SLEEP. WARM PACK PROVIDED FOR CHEST PER REQUEST. SBA TO BSC TO VOID. NOTIFIED BY FLOWER SHOP MANAGER PT SpO2 DOWN TO 70'S WITH ACTIVITY. ENCOURAGED DEEP BREATHING. OXYGEN TITRATED FOR RECOVERY. PT BACK TO 10L HIGH FLOW. SpO2 95% AT THIS TIME.
--- NOTE | 2020-11-03 02:53 | NUR ---
PT LYING ON RIGHT SIDE. EYES CLOSED. RESPIRATIONS EVEN. SpO2 93%.
--- NOTE | 2020-11-03 04:27 | NUR ---
CALL LIGHT ANSWERED. PT UP TO BSC WITH SBA TO VOID. SATS DOWN TO 60'S ON 15L/HIGH FLOW NC. PT BACK TO BED. 10L OXYMASK PLACED WITH 10L HIGH FLOW NC. SATS UP TO 96%. PT LYING ON RIGHT SIDE WITH HOB ELEVATED.
--- NOTE | 2020-11-03 06:29 | NUR ---
SpO2 LOW. PT LYING ON LEFT SIDE WITH HOB ELEVATED. 1OL/OXY MASK AND 10L/HIGH FLOW NC IN PLACE. OXYGEN TITRATED TO 15L EACH WHEN TRANSFERRING TO BSC. SpO2 DOWN TO 60'S. PT BACK TO BED. REPOSITIONED ON RIGHT SIDE WITH HOB SLIGHTLY ELEVATED. AFTER SOME TIME TO RECOVER SpO2 96% ON 10L EACH. RT NOTIFIED OF INCREASED OXYGEN NEEDS AND WILL COME ASSESS PT.
--- NOTE | 2020-11-03 07:31 | NUR ---
this rn received report from theresa esparza. pts sats in low 90's at this time due to cpox
--- NOTE | 2020-11-03 08:25 | NUR ---
THIS RN IN PTS ROOM TO GIVE PT HER MORNING MEDS AND DO MORNING ASSESSMENT. THIS RN ASSISTED PT BEDISDE COMMODE. THIS RN TITRATED PT UP TO 13L ON BOTH HIGH FLOW NC AND OXYMAKSK-TOTAL OF 30 L. PT DID DESAT TO LOW 70'S BUT DID RECOVER WITHIN 5MINS. PT ABLE TO SIDE PRONE ON HER LEFT SIDE. THIS RN DID HAVE TO TURN UP PT TO 15L ON BOTH HIGH GIANNA NC AND OXYMASK. PT BACK TO BED AND IS AWARE THAT HER SATS NEED TO RECOVER BEFORE SHE CAN ATTEMPT TO EAT BREAKFAST
--- NOTE | 2020-11-03 10:15 | NUR ---
THIS RN NOTED PTS SATS RANGING 87-90% ON 15L HIGH GIANNA NC AND BLOW BY ON THE OXYMASK. PT APPEARS TO BE RESTING AND IS STILL PRONED ON HER LEFT SIDE
--- NOTE | 2020-11-03 10:30 | NUR ---
SOLOMON RT IN PTS ROOM TO CHANGE PT OVER TO VAPOTHERM 40L. PT ROLLED OVER TO PRONE ON RIGHT SIDE. PT REPORTS NOT NEEDING ANYTHING AT THIS TIME.
--- NOTE | 2020-11-03 12:05 | NUR ---
JUSTICE SAHU IN PTS ROOM TO TRANSFER PT TO BEDSIDE COMMODE. PT DID DESAT TO 75% DUE TO HAVING A COUGHING FIT WHILE UP. PT REPORTS HAVING MILD-MODERATE SOB WHILE UP. PT TO BELLY PRONE AT THIS TIME WITH ASSISTANCE FROM JUSTICE. PT ABLE TO RECOVER WITH VAPOTHERM AT 40L WITHIN 5 MINS OF GETTING BACK TO BED.
--- NOTE | 2020-11-03 13:06 | NUR ---
No change in plan for dc.
--- NOTE | 2020-11-03 13:38 | NUR ---
PT PRONING, WALKED HER THROUGH TIGHTNENING HER NASAL CANNULA. SATS LOW 90'S
--- NOTE | 2020-11-03 14:30 | NUR ---
THIS DENTAL MECHANIC HELPED PT USE THE BEDSIDE COMMODE. PT IS NOW IN THE RECLINER. CALL LIGHT IS WITHIN REACH. NO FURTHER NEEDS AT THIS TIME.
--- NOTE | 2020-11-03 14:48 | NUR ---
PATIENT IN CHAIR. VITALS AND I&O'S CHARTED. PATIENT STATES SHE IS COMFORTABLE AT THIS TIME. CALL LIGHT IN REACH. NO FURTHER NEEDS AT THIS TIME.
--- NOTE | 2020-11-03 16:17 | NUR ---
ETHYLBENZENE CRACKING SUPERVISOR ASSISTED PT TO BSC FOR BM AND PT DESATTED TO LOW 70'S. QUICKLY MOVED BACK TO BED AND NONREBREATHER PLACED OVER TOP OF VAPOTHERM TO RECOVER. RT BRITTANI SAID TO LEAVE IN PLACE FOR NOW. PT NOW SATTING 98%
--- NOTE | 2020-11-03 18:35 | NUR ---
PATIENT IN BED RESTING AT THIS TIME. VITALS AND I&O'S CHARTED. PATIENT STATES SHE IS "PERFECTLY COMFORTABLE WHERE I AM" AND COMENTS ON HOW HER O2 IS STAYING AT A GOOD SPOT IN THIS POSITION. CALL LIGHT IN REACH. NO FURTHER NEEDS AT THIS TIME.
--- NOTE | 2020-11-03 19:56 | NUR ---
RECEIVED REPORT FROM DAY SHIFT RN. PATIENT IS RESTING IN BED WATCHING TV. NO NEEDS NOTED. CALL LIGHT IN REACH.
--- NOTE | 2020-11-03 21:08 | NUR ---
PATIENT ASSESMENT COMPLETED. PATIENT REFUSED SCHEDULED MUCINEX AT THIS. PATIENT EDUCATED ON MEDICATION. PATIENT VERALIZES UNDERSTANDING. PATIENT GIVEN NC MELATIONIN PER ORDER. PATIENT GIVEN PRN COUGH MEDICATION PER ORDER. PATIENTS ICE WATER REFILLED. PATIENTS SOUP HEATED UP. PATIENT IS RESTING IN HIGH FOWLERS EATING SOUP. VITALS TAKEN AND RECORDED. INTAKE AND OUPUT RECORDED. PATIENT ABLE TO USE HEAD CROWELL AND WAS ABLE TO VOID. PATIENT REMAINS ON VAPOTHERM AT 40L AND 100% FI02. PATIENT DENIES ANY FURTHER NEEDS. CALL LIGHT IN REACH.
--- NOTE | 2020-11-03 22:34 | NUR ---
PATIENT GIVEN PRN TYLENOL FOR 7/10 NECK PAIN. PATIENT REMAINS ON VAPOTHERM. PAITENT DENIES ANY SOB. PATIENT DENIES ANY FURTHER NEEDS. CALL LIGHT IN REACH.
--- NOTE | 2020-11-04 00:31 | NUR ---
PATIENT REPOSTS MUSCLE SPASM. PATIENT APPEARS ANXIOUS. PATIENT IS UNABLE TO GET COMFORTABLE. PATIENT GIVEN PRN MEDICATION FOR ANXIOUSNESS. PATIENT PROVIDED WITH COLD AND WARM PACK FOR MSUCLE SPASM IN LEFT SHOULDER. PATIENT REMAINS ON VAPOTHERM. PATIENT DENIES ANY SOB. NO FURTHER NEEDS NOTED. CALL LIGHT IN REACH.
--- NOTE | 2020-11-04 01:41 | NUR ---
PATIENT GIVEN PRN ANXIETY MEDICATION TO TITRATE TO THE MAX DOSE PER PATIENT REQUEST. PATIENT DENIES ANY FURTHER NEEDS. CALL LIGHT IN REACH.
--- NOTE | 2020-11-04 03:32 | NUR ---
PATIENT ASSISTED TO BEDPAN. PATIENT WAS ABLE TO VOID. PATIENT REMAINS IN BED RESTING. PATIENT GIVEN PRN TYLENOL PER REQUEST FOR 5/10 PAIN IN HER NECK. PATIENT ASSISTED TO PRONE. PATIENT DENIES ANY SOB. NO FURTHER NEEDS NOTED. CALL LIGHT IN REACH.
--- NOTE | 2020-11-04 04:43 | NUR ---
PATIENTS BLOOD DRAWN AND SENT TO LAB. PATIENT DENIES ANY SOB. PATIENTS PAIN IN HER NECK HAS IMPROVED TO A 2/10. VITALS TAKEN AND RECORDED. INTAKE AND OUPUT RECORDED. PATIENT REMAINS ON VAPOTHERM AT 40 AND 100. PATIENT DENIES ANY OTHER NEEDS. CALL LIGHT IN REACH.
--- NOTE | 2020-11-04 07:30 | NUR ---
this rn received report from jey esparza. this rn noted pts sats on tele monitor- 88-90% on vapotherm
--- NOTE | 2020-11-04 07:43 | NUR ---
Progress note faxed to Ann at [facility] for update.
--- NOTE | 2020-11-04 08:02 | NUR ---
this rn in pts room to assist pt to use bedpan due to repiratory status. pt able to lift hips well to assist with bed robison. this rn provided pt with her morning meds. pt reports a headache but is not due for tylenol at this time, this rn will bring it in when she can have it
--- NOTE | 2020-11-04 09:35 | NUR ---
THIS RN IN PTS ROOM DUE TO PT REQUESTING THE OXYMASK BECAUSE SHE FEELS LIKE SHE CAN'T CATCH HER BREATH. THIS RN NOTED PTS O2 SATS WERE 90-93% ON VAPOTHERM. THIS RN PROVIDED PT WITH VISTARIL AND TYLENOL DUE TO PT STATING SHE WAS ANXIOUS. PTS BREATHING STARTING TO IMPROVE THIS RN WAS LEAVING ROOM. THIS RN DISCUSSED WITH PT THAT INCREASED RESPIRATORY RATE ISN'T GOING TO HELP HER GET BETTER. PT STATED SHE KIND OF UNDERSTOOD
--- NOTE | 2020-11-04 12:23 | NUR ---
DC remains pending due to worsening of respiratory status this week.
--- NOTE | 2020-11-04 12:27 | NUR ---
TRANSFER OF CARE OF PATIENT FROM DOROTEO ENCARNACION AT THIS TIME.
--- NOTE | 2020-11-04 13:03 | NUR ---
PT SAT UP IN BED FOR LUNCH, SHE IS RELAXED AT THIS TIME. ANXIETY MANAGED AT THIS TIME. PT ASSESSMENT COMPLETE. PT 95% ON VAPOTHERM 40L 100% FIO2.
--- NOTE | 2020-11-04 14:20 | NUR ---
PT UP TO BEDSIDE COMMODE WITH 'S OK, PT TOLERATED WELL MAINTAINING 92% AND GREATER THROUGHOUT ACTIVITY SHE VOIDED WELL. PACK TO BED TO LAY ON HER LEFT SIDE
--- NOTE | 2020-11-04 18:48 | NUR ---
PT HAS SHOWED NOTABLE IMPROVEMENT IN OXYGENATION TODAY, SHE TOLERATED UP TO BEDSIDE COMMODE MAINTAINING 91% AND UP OXYGENATION SATURATIONS. SHE IS ON 40L 95% FIO2 MAINTAINING WELL, NEW IV SITE. GOOD APPETITE. Q.S. URINE OUT. ANXIETY WELL MANAGED WITH VISTRIL AND TYLENOL PRN.
--- NOTE | 2020-11-04 20:01 | NUR ---
RECEIVED REPORT FROM DAY SHIFT RN. PATIENT IS RESTING IN BED WATCHING TV. PATIENT DENIES ANY SOB. NO NEEDS NOTED. CALL LIGHT IN REACH.
--- NOTE | 2020-11-04 21:35 | NUR ---
PATIENT ASSESMENT COMPLETED. VITALS TAKEN AND RECORDED. PATIENT ASSISTED TO USE THE BED CROWELL. PATIENT WAS ABLE TO VOID. PATIENT GIVEN PRN TYLENOL FOR 5/10 PAIN IN HER NECK THAT IS CHRONIC. PATIENT GIVEN PRN MELATONIN PER ORDER. PATIENT HAD QUESTIONS ABOUT OXYGEN AND GOALS. EDUCATED PATIENT ON PLAN OF CARE AND ANSWERED ALL QUESTIONS. PATIENT GIVEN PRN ANXIETY MEDICATION PER REQUEST. PATIENT APPEARS ANXIOUS AND DOWN ABOUT [facility]. PATIENT DENIES ANY FURTHER NEEDS. CALL LIGHT IN REACH. PATIENT REMAINS ON VAPOTHERM. FRESH ICE WATER PROVIDED.
--- NOTE | 2020-11-04 23:43 | NUR ---
PATIENTS ICE WATER REFILLED. PATIENT REQUEST PRN COUGH MEDICATION. PRN COUGH MEDICATION GIVEN PER ORDER. PATIENT DENIES ANY SOB. PATIENT DENIES ANY FURTHER NEEDS. CALL LIGHT IN REACH.
--- NOTE | 2020-11-05 03:13 | NUR ---
PATIENT ASSISTED IN USING THE BEDPAN. PATIENT WAS ABLE TO VOID. PATIENT REPOSITIONED IN BED. PATIENT IS VERY ANXIOUS AND REQUESTING ANXIETY MEDICATION. PATIENT GIVEN PRN MEDICATION FOR ANXIETY PER ORDER. PATIENT GIVEN PRN TYLENOL FOR 5/10 PAIN IN HER NECK. PATIENT PROVIDED WITH FRESH ICE WATER. PATIENT DENIES ANY FURTHER NEEDS. CALL LIGHT IN REACH.
--- NOTE | 2020-11-05 05:05 | NUR ---
PATIENT ASSISTED TO REPOSITION IN BED. PATIENT IS NOW ON HER RIGHT SIDE. PATIENT REMAINS ON VAPOTHERM . PATIENT DENIES ANY SOB. VITALS TAKEN AND RECORDED. INTAKE AND OUPUT RECORDED. PATIENT DENIES ANY FURTHER NEEDS. CALL LIGHT IN REACH.
--- NOTE | 2020-11-05 07:45 | NUR ---
REPORT RECEIVED FROM NIGHT RN AND PT. CARE RESUMED. RT IN THE ROOM WITH CPT VEST. PT. ON NONREBREATHER AND VAPTHERM AT MAX SETTINGS. PT. ANXIOUS AND ADMIN PO VISTERIL EARLY PER MD. LUNGS COARSE THROUGHOUT AND BREATHING SHALLOW, LABORED. RR IS 43. IV SITE WNL AND FLUSHES. PT. COACHED WITH BREATHING. CPAP ORDERED AND RT BACK IN THE ROOM TO SET.
--- NOTE | 2020-11-05 10:15 | NUR ---
CALLED PERSON TO NOTIFY IN CHART JUVE LAWSON, IN REGARDS TO UPDATE OF PT STATUS PT REQUIRING MORE ASSISTANCE WITH OXYGEN, WORK OF BREATHING, NOT SLEEPING WELL OVER PMO MANAGER, ANXIETY. PT IS GOING TO BE TRANSFERED TO CCU ROOM 130 FOR CLOSER MONITORING. DISCUSSED THE POTENTIAL OF FURTHER OR MORE SUPPORTIVE CARE.
--- NOTE | 2020-11-05 10:42 | NUR ---
CALLED IN REGARDS TO [facility]
--- NOTE | 2020-11-05 11:13 | NUR ---
THIS NURSE TO BEDSIDED TO START IV FOR VANCO INFUSION. IV PLACED IN LEFT WRIST WITH NO ISSUES. VANCO STARTED. PT ASSSITED TO LYING ON LEFT SIDE. CPOX CHANGED FROM HAND TO TOE D/T ACRYLIC NAILS. SPO2 AT THIS TIME IS 93%. OTTO RN TO BEDSIDE FOR MIDLINE PLACEMENT. PRIMARY NURSE NOTIFIED.
--- NOTE | 2020-11-05 11:30 | NUR ---
PT. BELONGINGS GATHERED IN PREP FOR TRANSFER. REPORT GIVEN TO CCU RN. PT. ADMIN TYLENOL AND HEATING PACK FOR CHRONIC BACK PAIN. ASSISTED WITH POSITIONING TO SIDE. PICC RN IN THE ROOM.
--- NOTE | 2020-11-05 12:23 | NUR ---
MIDLINE INSERTION NOTE: ASKED BY DR. KOHLI TO EVALUATE PATIENT FOR MIDLINE PLACEMENT. PATIENT WAS AGREEABLE TO MIDLINE PLACEMENT. ALL RISKS, BENEFITS, REVIEWED WITH PATIENT. PT DENIES ALLERGY TO LIDOCAINE AND MEDICAL CHART CHECKED. PT'S SKIN PREPPED AND LIDOCAINE USED TO NUMB SKIN. PATIENT'S CEPHALIC VEIN WAS CHOSEN AND APPEARED TO BE THE BEST CANDIDATE FOR A MIDLINE PLACEMENT. PATIENT CEPHALIC WAS ACCESSED EASILY ON THE FIRST ATTEMPT AND CATHETER ADVANCED INTO THE VEIN, VERIFYING TIP LOCATION WHILE INSERTING. PT TOLERATED WELL. CATHETER ADVANCED EASILY INTO VEIN. DARK, BRISK, NON PULSATILE BLOOD WAS RETURNED. STERILE DRESSING WAS PLACED OVER SECUREMENT DEVICE AND BIO PATCH. MIDLINE ASPIRATING BLOOD EASILY AND FLUSHING EASILY. REPORT GIVEN TO CHOLO RN CARING FOR PATIENT AND ALSO ALYSHA FLOR WHO WILL CARE FOR PATIENT IN CCU. EDUCATION MATERIAL LEFT IN PATIENT'S CHART.
--- NOTE | 2020-11-05 12:46 | NUR ---
PT. TRANSFERRED WITH ALL BELONGINGS TO CCU ON NONBREATHER MASK ON 15L WITH R.T.
--- NOTE | 2020-11-05 13:00 | NUR ---
PT ARRIVED IN CCU AROUND 1230 OR SO. PT ON C-PAP AND TOLERATING IT WELL SO FAR. V/S WDL SO FAR. LOBES ARE DIMINISHED BUT CLEAR. URINE OUPUT WDL SO FAR. PT ONLY PRONES FROM SIDE TO SIDE. WILL CONTINUE TO MONITOR.
--- NOTE | 2020-11-05 14:15 | NUR ---
C-PAP WAS INCRASED TO 100% FIO2 DUE TO O2 SATS IN THE MID 80'S. PT NOW IS DOING BETTER. PT ALSO TURNED TO HER LEFT SIDE NOW. PT COMPLAINS OF BACK PAIN. MD KOHLI AWARE. I HAVE NO PRN PAIN MEDICATIONS TO GIVE AT THIS TIME. MD KOHLI AWARE.
--- NOTE | 2020-11-05 15:00 | NUR ---
PT IN ROOM. NO NEW CONCERNS NOTED. WAITING ON PRN PAIN MEDICATION ORDER.
--- NOTE | 2020-11-05 16:06 | NUR ---
RT COLLECTED RAPID COVID 19 SWAB USING IN HOUSE LAB WITH NO COMPLICATIONS AT THIS TIME.
--- NOTE | 2020-11-05 16:45 | NUR ---
UPPER LOBES DIMINISHED, LOWER LOBES HAVE CRACKLES PRESENT AT THIS TIME. PT REMAINS ON C-PAP AT 100%. ABD SOUNDS PRESENT, ABD SOFT BUT TENDER. NO PERIPH. EDEMA NOTED. URINE OUTPUT IS WDL. PT DOES NOT HAVE ANY RESERVE FAR ACTIVITY AND BEING OFF C-PAP LONG. O2 SATS DROP RIGHT TO 80% AND SOMETIMES INTO THE 70'S.
--- NOTE | 2020-11-05 19:35 | NUR ---
RECEIVED REPORT FROM CHACHO ENCARNACION. PATIENT ON CPAP AT 100% FIO2, SATS ARE 99%. DR RAND MADE AWARE DURING HIS WALKTHRU AFTER SHIFT CHANGE THAT REPORTING OFF RN HEARD CRACKLES IN BASES THIS AFTERNOON. PATIENT USING BED CROWELL FOR VOIDS AND BM IS NOT TOLERATING BEING OFF THE OXYGEN VERY LONG. ADMITTED FROM MED SURG TODAY.
--- NOTE | 2020-11-05 20:07 | NUR ---
IN ROOM TO COLLECT BLOOD CULTURES. THIS RN ASKED PATIENT IF SHE WOULD BE OK HAVING A NAVA CATHETER PLACED, EXPLAINED PROCEDURE AND USE, PATIENT IS REFUSING AT THIS TIME. PATIENT GIVEN SIPS OF WATER BRIEFLY TOOK HER MASK OFF TO DO THIS. PATIENT INFORMED SHE WILL BE RECEIVING HER NEXT ANTIBIOTICS THIS EVENING AND I WILL BE IN TO COMPLETE HER ASSESSMENT.
--- NOTE | 2020-11-05 21:15 | NUR ---
PATIENT ASSESSMENT COMPLETE. PATIENT HAS BEEN GIVEN SOME MORE SIPS OF WATER WHILE SHE TOOK HER VISTARIL AND OXYCODONE. PATIENT'S ABX HAVE BEEN STARTED. COVERED PATIENT WITH ADDITIONAL BLANKET PER HER REQUEST. DENIES NEEDING TO VOID OR HAVE A BM AT THIS TIME. INFORMED HER I WILL BE IN TO CHECK ON HER SOON. CALL LIGHT IN REACH. REMAINS ON CPAP , 100%FIO2.
--- NOTE | 2020-11-05 21:52 | NUR ---
CHECKED ON PATIENT AFTER SYBIL FROM RT WAS IN ROOM TO DO CARES. PATIENT NEEDED TO VOID, PLACED PATIENT ON BEDPAN SHE VOIDED 300 ML YELLOW URINE. PATIENT HAS ALSO DRANK ABOUT 300 ML WATER IN THE LAST 2 HOURS, ASSISTED PATIENT BY REMOVING HER MASK AND HAVING HER SIP. DENIES OTHER NEEDS AT THIS TIME. LAILA NIETO.
--- NOTE | 2020-11-05 22:35 | NUR ---
CHECKED ON PATIENT, SHE WOULD LIKE SOME WATER. REFRESHED PATIENT'S CUP WITH WATER AND ICE, TOOKE HER MASK OFF AND LET HER HAVE SOME SIPS. SHE DENIES OTHER NEEDS, REPORT HER PAIN IS "A LITTLE BETTER"
--- NOTE | 2020-11-06 00:06 | NUR ---
ANSWERED PATIENT'S CALL LIGHT. ASSISTED PATIENT WITH HER MASK SHE IS REQUESTING MORE WATER TO DRINK. DENIES OTHER NEEDS AT THIS TIME. CALL LIGHT IN PLACE. CPAP REMAINS AT 100% FIO2, SATS 98% RR18.
--- NOTE | 2020-11-06 00:20 | NUR ---
ANSWERED PT'S CALL LIGHT. PATIENT WANTS TO ROLL TO HER RIGHT SIDE. ASSISTED PATIENT WITH THIS REPOSITIONING. DENIES OTHER NEEDS. DENIES NEEDING TO VOID. CALL LIGHT IN REACH
--- NOTE | 2020-11-06 02:25 | NUR ---
ANSWERED CALL LIGHT. PT REQUESTING MORE PAIN MED FOR HER NECK AND HEAD PAIN. ALSO PT HAS REPOSITIONED SELF FROM LYING ON HER RIGHT SIDE TO HER BACK. PT ASSISTED TO UORIGHT POSITION TO SWALLOW PILL AND DRINK WATER, CPAP MASK PLACED BACK ON. DENIES NEED TO VOID. CALL LIGHT IN REACH
--- NOTE | 2020-11-06 04:00 | NUR ---
PATIENT APPEARS TO BE SLEEPING WHEN CHECKING ON HER, IS LAYING ON HER BACK TOWARD HER RIGHT SIDE. CPAP MASK REMAINS ON PATIENT. VISUALIZED RISE AND FALL OF HER CHEST, EVEN UNLABORED.
--- NOTE | 2020-11-06 05:05 | NUR ---
PATIENT ASSESSMENT COMPLETE. PATIENT WAS ASLEEP WHEN THIS RN WALKED IN. REPORTS HER HEAD AND NECK PAIN ARE BETTER. NEEDS TO VOID. PLACED PATIENT ON BEDPAN PATIENT ABLE TO LIFT OWN BUTT OFF BED TO COMPLY. ALSO TOOK CPAP MASK OFF BRIEFLY FOR PATIENT TO HAVE SOME DRINKS OF WATER. PATIENT HOB ADJUSTED FOR HER COMFORT, REMAINS > 30 DEGREES. DENIES ANY OTHER NEEDS RIGHT NOW. CALL LIGHT IN REACH, WANTS TO LAY ON HER BACK ENCOURAGED PATIENT TO ROTATE TOHER SIDE.
--- NOTE | 2020-11-06 06:00 | NUR ---
CHECKED ON PATIENT. SHE IS ASLEEP WITH CPAP ON. RR 17. APPEARS NONLABORED AND EVEN. CALL LIGHT IN REACH.
--- NOTE | 2020-11-06 06:31 | NUR ---
PT REMAINED ON CPAP ALL NIGHT EXCEPT FOR BRIEF MOMENTS TO DRINK WATER AND SWALLOW PILLS. PATIENT HAS USED BEDPAN TWICE THIS SHIFT TO VOID, OVER 600ML. REFUSES NAVA CATH. WAS MEDICATED TWICE WITH HER PRN OXYCODONE FOR HER NECK PAIN. TOOK VISTARIL LAST NIGHT BEFORE BED. SHE HAS REPOSITONED TO HER RIGHT SIDE AT TIME BUT PREFERS TO BE ON HER BACK, ENCOURAGING HER TO MOVE TO BOTH SIDES IF SHE WON'T PRONE. SATS MID 90'S ON CPAP.
--- NOTE | 2020-11-06 07:35 | NUR ---
pt sleeping soundly with cpap in place. no observable distress noted.
--- NOTE | 2020-11-06 08:27 | NUR ---
pt remains sleeping soundly, o2 sats are 94% with cpap in place. pt is in no observable distress.
--- NOTE | 2020-11-06 08:44 | NUR ---
VITALS AND I&OS CHARTED. PATIENT AWAKE IN BED, CPAP IN PLACE ON 100% BEDPAN USED FOR 175 VOID. CALL LIGHT IN REACH
--- NOTE | 2020-11-06 09:00 | NUR ---
PT OFF CPAP AND ON TO VAPOTHERM. PT STAT UP HIGH IN BED TO ASSIST WITH TAKING PILLS AND DRINKING WATER, NO ASPIRATION WITH PO FLUIDS. PT IS ALERT AND ORIENTED X4. VAPOTHERM SETTINGS ARE 40L/100%. PT IS AGREABLE TO PRONING TODAY. PT GIVEN BEDBATH, LINEN CHANGED, AND IS ABLE TO DO OWN ORAL CARE. IV SITES AND MIDLINE ARE INTACT, NO REDNESS OR SWELLING NOTED, FLUIDS AND FLUSHES INFUSE EASILY. PT C/O 5/10 NECK PAIN, GIVEN PO 5 MG OXYCODONE. PT GIVEN 50 MG PO VISTARIL FOR ANXIETY.
--- NOTE | 2020-11-06 09:45 | NUR ---
PT PRONING ON HER BELLY WITH RT ARM ABOVE SHOULDER. VAPOTHERM STILL SET TO 40L/100%
--- NOTE | 2020-11-06 11:47 | NUR ---
PT NOW OFF BELLY AND LAYING HIGH ON HER LEFT SIDE. PT KITTY PRONING WELL TODAY. PT ENCOURAGED TO TAKE PO FLUIDS AND SHE DOES WELL. ALL IV SITES AND MIDLINE ARE INTACT, NO REDNESS OR SWELLING NOTED, PT DENIES PAIN AT EITHER SITE. PT REMAINS ALERT AND ORIENTED X4.
--- NOTE | 2020-11-06 13:23 | NUR ---
PT GIVEN 5 MG PO OXYCODONE FOR 8/10 NECK PAIN.
--- NOTE | 2020-11-06 14:41 | NUR ---
PT GIVEN 650 MG PO TYLENOL FOR 8/10 NECK PAIN, ALSO 4 MG IV ZOFRAN FOR PREVENTION OF NAUSEA AND VOMITING PT HAS COUGHING FITS FREQUENTLY. PT ALSO GIVEN DOSE OF ROBITUSSIN.
--- NOTE | 2020-11-06 16:24 | NUR ---
PT'S DAUGHTER IS OUTSIDE OF THE ROOM TALKING TO HER MOTHER, GLASS DOOR IS SHUT. PT GIVEN 50 MG PO VISTARIL FOR ANXIETY. PT APPEARS TO BE CHEERED BY HER DAUGHTERS PRESENCE. GAVE DAUGHTER A FULL UPDATE ON PLAN OF CARE AND PT STATUS.
--- NOTE | 2020-11-06 19:18 | NUR ---
PT HAS REMAINED ALERT AND ORINETED X4 ALL SHIFT. PT ABLE TO FULLY PRONE, AND PRONE HIGH ON EACH SIDE. PT HAS BEEN ON EITHER VAPOTHERM OR CPAP ALL DAY. PT ABLE TO TAKE ORAL MEDS WELL. SHE REPORTS A POOR APPITITE, ABLE TO DRINK A CLEAR ENSURE AND APPLE JUICE. PT'S DAUGHTER ABLE TO COME IN AND VISIT FROM THE OTHER SIDE OF THE CLOSED GLASS DOOR. FULL BEDBATH GIVEN, ALL LINENS CHANGED. PT IV AND MIDLINE ACCESS REMAINS PATIENT ALL SHIFT. PT VERY COOPERATIVE WITH PRONING THIS SHIFT AND STATES "I FEEL BETTER, I THINK THE ANTIBIOTICS ARE WORKING".
--- NOTE | 2020-11-06 19:27 | NUR ---
RECEIVED REPORT FROM DAY SHIFT NURSES. PATIENT HAS BEEN ABLE TO PRONE TODAY SOMEWHAT. SHE IS CURRENTLY ON VAPOTHERM AT 40 LPM 100% FIO2 BASED ON CXR RESULTS TODAY, PRESSURE FROM THE CPAP MAY BE AN ISSUE. PATIENT HAS HAD BED BATH AND LINEN CHANGE HAS HAD DECENT VOIDING, BUT NOT REALLY EATING, HAD ENSURE AND APPLIE JUICE. DAUGHTER HAS BROUGHT SOUP. RIGHT NOW SATS ARE 89%, PER DR RAND KEEP SATS ABOVE 85% AT THIS SETTING.
--- NOTE | 2020-11-06 20:08 | NUR ---
PT WAS LYING IN PRONE POSITION WITH HER LEFT ARM ABOVE HEAD. BROUGHT PATIENT SOUP FRO HER TO EAT. SAT PATIENT UPRIGHT IN BED FORABOUT 10 MINUTES FRO HER TO EAT SOUP. HER SATS ON MAX VAPOTHERM WENT TO 80%, GOOD PLETH. RR INCREASED. PATIENT STATES SHE IS "FEELING MUCH BETTER THAN YESTERDAY" AND PATIENT IS WANTING TO TALK, ENCOURAGE PATIENT TO EAT AND SAVE HER ENERGY FOR HER BREATHING. PATIENT IMMEDIATELY PLACED RO HER LEFT SIDE PRONED TOWARD BED, SATS IMPROVED TO 87%. PATIENT WAS ALSO GIVEN WATER TO DRINK WHILE UPRIGHT. INFORMED PT WILL BE BACK IN TO ADMINISTER NIGHTLY ANTIBIOTICS AND OTHER MEDS. RT TO BE HERE TO DO BREATHING TREATMENTS.
--- NOTE | 2020-11-06 20:11 | NUR ---
SYBIL FROM RT HERE TO DO RT EVAL AND CARES.
--- NOTE | 2020-11-06 20:25 | NUR ---
DR RAND HAS COME BY TO CHECK ON STATUS OF PATIENT. INFORMED HIM OF HER DESATS TO SIT UPRIGHT TO EAT WHILE ON VAPOTHERM MAX SETTINGS. CURRENTLY HER SATS 86-88%, HE REPORTS "THAT IS OK FOR HER RIGHT NOW" ALSO DISCUSSED HER BP TREND AND MAP, PATIENT IS VOIDING SUFFICIENT. NO NEW ORDERS RECEIVED AT THIS TIME
--- NOTE | 2020-11-06 21:17 | NUR ---
PATIENT ASSESSMENT COMPLETE. EVENING ABX STARTED, PO MEDS GIVEN SEE EMAR. PATIENT ALSO NEEDED TO VOID SO HAD HER LAY ON BED CROWELL, SATS WENT DOWN TO HIGH 60'S ON VAPOTHERM SOON PATIENT WENT BACK TO HER LEFT SIDE SATS BEGAN TO IMPROVE. ASKED PATIENT IF WE COULD PLACE A NAVA CATHERTER TO AVOID DESATUARTION DURING HER VOIDS BUT PATIENT IS AGAIN REFUSING. PATIENT TOOK PO MEDS WELL, DRANK WATER. REMAINS ON VAPOTHERM 40 LPM 100% FIO2. HAS NRB IN AT BEDSIDE NEEDED.
--- NOTE | 2020-11-06 23:13 | NUR ---
CHECKED ON PATIENT. ASSISTED HER TO VOID ON BED CROWELL. SHE VOIDED 100 ML. PATIENT DESATS TO THE 70'S BUT WILL COME BACK UP WHEN SHE IS PLACED BACK IN A MORE FLAT POSITION WITH HOB STILL ELEVATED 30 DEGREES. PATIENT ROTATED TO HER LEFT SIDE. DENIES OTHER NEEDS REPORTS HER PAIN IS "MUCH BETTER" REMAINS ON MAXED OUT VAPO THERM WITH NRB IN PLACE NEEDED.
--- NOTE | 2020-11-07 00:44 | NUR ---
PT ASSESSMENT COMPLETE. PATIENT WAS ASLEEP WHN THIS RN CHECKED ON HER SHE IS LAYING ALMOST PRONED TO HER RIGHT SIDE REMAINS ON VAPOTHERM WITH MAXED SETTINGS, NRB IN PLACE NEEDED. SATS IGH 80'S LOW 90'S. PT WAKENS REALLY EASILY BUT WANTS TO GO BACK TO SLEEP, DENIES ADDITIONAL NEEDS AT THIS TIME.
--- NOTE | 2020-11-07 02:24 | NUR ---
ANSWERED PT'S CALL LIGHT. SHE NEEDS TO VOID, ASSISTED PT BACK ON BED CROWELL. AGAIN WHEN PT IN PLACED ON BED CROWELL HER SATS WILL GO DOWN INTO 70'S, THEY WILL COME BACK UP WHEN PATIENT IS REPOSITIONED. SHE IS CURRENTLY ON HER LEFT SIDE REMAINS ON MAX VAPOTHERM. VOIDED 250 ML. HR INCREASED INTO THE 110'S WITH TOILETING ON BED CROWELL.
--- NOTE | 2020-11-07 03:30 | NUR ---
CHECKED ON PATIENT. SHE WANTS TO ROLL TOWARD OPPOSITE SIDE PATIENT WAS ABLE TO ROLL SELF ONTO HER RIGHT SIDE, ASSISTED HER WITH PILLOW. REMAINS ON VAPO THERM MAX SETTINGS AND NRB NEEDED. SHE IS MAINTAINING SATS ABOVE 85% DENIES OTHER NEEDS. INFORMED SHE WILL BE HAVING LAB DRAW THIS MORNING.
--- NOTE | 2020-11-07 04:35 | NUR ---
PT'S HR WENT ABOVE 150'S IN TO CHECK ON PATIENT. HAD OTHER RN'S NOTIFY DR RAND AND RT. PT STATING SHE IS "NOT FEELING ANY DIFFERENT, I'M OK"
--- NOTE | 2020-11-07 04:40 | NUR ---
DR RAND CALLED DR RAND
--- NOTE | 2020-11-07 05:16 | NUR ---
PER DR RAND STOP DILTIAZEM DRIP AT THIS TIME MANUAL BP 74/56. MONITOR 84/47. PRIOR BP READINGS WERE ERROUNSOULY HIGH
--- NOTE | 2020-11-07 05:20 | NUR ---
DR RAND IN ROOM SPEAKING WITH PT. PLAN IS TO INTUABTE DUE TO PT O2 SATS AND HER HR NOT RESPONDING WELL TO TREATMENT. PT OK WITH THIS. DAUGHTER BEING CALLED
--- NOTE | 2020-11-07 05:26 | NUR ---
AMIODORONE BOLUS 150 MG STARTED
--- NOTE | 2020-11-07 05:36 | NUR ---
AMIODORONE 6 HR INFUSION STARTED
--- NOTE | 2020-11-07 05:58 | NUR ---
RT TIBURCIO IN ROOM. SUCTION IS SET UP AND ON. VENTILATOR IN ROOM. PT PLACED ON TO HER LEFT SIDE. TIBURCIO FROM RT TO PREOXYGENATE. PT IS ON VAPOTHERM MAX SETTINGS AND NRB 15 LITERS
--- NOTE | 2020-11-07 06:20 | NUR ---
JODIE ROTH HERE. PT'S DAUGHTER IN ROOM TO SPEAK BRIEFLY WITH PATIENT.
--- NOTE | 2020-11-07 06:44 | NUR ---
PT PREOXYGENATED PER RT BY USING OF AMBU BAG AND SWITCH TO NRB WHEN PT NOT TOLERATING THAT WELL. JODIE ROTH INTUBATED PT AT 0631 USING GLIDESCOPE, 7.5 ETT TUBE. SHE GAVE BOLUSES OF PHENYLEPHRINE IV, 30MG KETAMINE, 120 SUCC, 100 MG PROPOFOL. RT PLACED INLINE END TIDAL TO VENTILATOR. BREATH SOUNDS AUSCULTATED BY FARHEEN ENCARNACION, EQUAL IN ALL SILVA. TUBE IS 23 AT THE TEETH. PLACED ON VENTILATOR PER RT
--- NOTE | 2020-11-07 06:52 | NUR ---
2 MG VERSED FOR PATIENT BUCKING THE VENT
--- NOTE | 2020-11-07 07:30 | NUR ---
REPORT RECIEVED FROM HYDROELECTRIC PLANT TECHNICIAN. UPON ENTERING ROOM,PATIENT IS ON VENT, SIZE 7.5 ETT, FIO2-100, PEEP-12, TV 300, PIP-41, ETCO2-60, VC-30.
--- NOTE | 2020-11-07 07:45 | NUR ---
SEE EMAR FOR TITRATION OF FENTANYL, VERSED AND OSITO-SYNEPHRINE GTT. AMIODARONE GTT CONTINUES TO INFUSE. LUNGS ARE COURSE THROUGHOUT.
--- NOTE | 2020-11-07 08:12 | NUR ---
[facility] TO [facility]. [facility] TEAM WISHES TO HOLD ON GIVING ROCURONIUM.
--- NOTE | 2020-11-07 08:12 | NUR ---
PHENOPHENIPHINE GTT TO OFF, BP-167/85.
--- NOTE | 2020-11-07 08:30 | NUR ---
TO [facility], REPORT HAD BEEN GIVEN TO [facility] TEAM.
--- NOTE | 2020-11-07 08:35 | NUR ---
REPORT PHONE TO [facility].
--- NOTE | 2020-11-07 22:04 | EKG ---
[facility] [address] [place] [address] Signed Atrial fibrillation with rapid ventricular response Inferior infarct , age undetermined ST \T\ T wave abnormality, consider anterior ischemia Abnormal ECG When compared with ECG of 26-OCT-2020 15:10, Atrial fibrillation has replaced Sinus rhythm Vent. rate has increased BY [address] now depressed in Lateral leads Inverted T waves have replaced nonspecific T wave abnormality in Inferior leads T wave inversion now evident in Anterior leads Confirmed by SAMANTHA RAND DO ([id number]) on 11/07/2020 10:04:33 PM Electronically Signed By: SAMANTHA RAND DO 11/07/20 220 PATIENT NAME: LORI PEÑALOZA Electrocardiogram DATE OF : 47 PHYSICIAN: SAMANTHA RAND DO REPORT #: [id number] REPORT IS CONFIDENTIAL AND NOT TO BE RELEASED WITHOUT AUTHORIZATION
== END 2020-11-07 08:30 | disposition short-term general hospital (02) | DRG 208 ==
LOC: ED 14:15 → MS 20:11 → CCU 11-05 12:20
PROVIDERS: ADMIT Internal Medicine; ATTEND Internal Medicine
PROC: 8E0ZXY6 Isolation (ICD-10-PCS; 2020-10-26)
PROC: 3E0DX3Z Introduction of Anti-inflammatory into Mouth and Pharynx, External Approach (ICD-10-PCS; principal; 2020-10-27)
PROC: XW033E5 Introduction of Remdesivir Anti-infective into Peripheral Vein, Percutaneous Approach, New Technology Group 5 (ICD-10-PCS; 2020-10-30)
PROC: 5A1935Z Respiratory Ventilation, Less than 24 Consecutive Hours (ICD-10-PCS; 2020-11-07)
PROC: 0BH18EZ Insertion of Endotracheal Airway into Trachea, Via Natural or Artificial Opening Endoscopic (ICD-10-PCS; 2020-11-07)
PROC: 5A09357 Assistance with Respiratory Ventilation, Less than 24 Consecutive Hours, Continuous Positive Airway Pressure (ICD-10-PCS; 2020-11-07)
PROC: 05HD33Z Insertion of Infusion Device into Right Cephalic Vein, Percutaneous Approach (ICD-10-PCS; 2020-11-07)
DX: U07.1 COVID-19 (principal); J80 Acute respiratory distress syndrome; J12.82 Pneumonia due to coronavirus disease 2019; J15.9 Unspecified bacterial pneumonia; J98.2 Interstitial emphysema; I48.91 Unspecified atrial fibrillation; Z88.5 Allergy status to narcotic agent; Z88.8 Allergy status to other drugs, medicaments and biological substances; Z91.010 Allergy to peanuts; I10 Essential (primary) hypertension; R74.01 Elevation of levels of liver transaminase levels; Z91.041 Radiographic dye allergy status; Z79.899 Other long term (current) drug therapy; Z90.49 Acquired absence of other specified parts of digestive tract; Z98.890 Other specified postprocedural states
CPT/HCPCS: 31500; 36569; 36600; 71045; 71260; 80048; 80053; 80202; 82803; 83690; 83735; 84484; 85007; 85025; 85379; 87040; 87070; 87205; 93005; 93010; 94002; 94640; 94660; 94667; 94668; 94760; 94799; 97110; 97116; 97162; 97530; 99285-25; A9270; C1751; C9803; J0282; J0692; J1200; J1650; J1885; J1956; J2250; J2370; J2405; J2930; J3010; J3370; J7040; J7050; J7060; J7121; Q0177; Q9967; U0003